=== PATIENT | male | born 1975 | race Caucasian/White ===

== ENCOUNTER 2020-08-22 14:02 | Emergency (ER) | payer OTHER, SELFPAY ==
[2020-08-22] VITALS (9 sets, daily range): BP systolic 123–144; BP diastolic 63–94; PULSE 60–93; RESP 12–17; TEMP 36.2–36.5; O2SAT 93–99
--- NOTE | ~2020-08-22 | CT_ITS ---
EXAMINATION: CT shoulder RT wo con DATE: 08/22/2020 18:09 INDICATION: Fracture of the right humerus TECHNIQUE: Computed tomography (CT) of the right shoulder was performed without intravenous contrast. The dose-length product was 544.59 mGy-cm. Automated exposure control and iterative reconstruction t echnique were employed. COMPARISON: No prior studies for comparison. FINDINGS: There is a comminuted intra-articular fracture of the right humeral neck. There is displace ment of the greater tuberosity. There is posterior displacement of the humeral head. There glenohumer al joint appears to be intact. Glenoid process is intact. Acromioclavicular joint and anatomic alignm ent. There are linear infiltrates of the right upper and lower lobe. IMPRESSION: 1. Comminuted, displaced intra-articular fracture right humeral neck with lateral displacement of the greater tuberosity. 2: Patchy linear infiltrates of the right upper and lower lobe which may represent atelectasis and/or pneumonia. Reviewed, dictated and finalized at location A. ING ENGINEER IMPRESSION: 1. Comminuted, displaced intra-articular fracture right humeral neck with later al displacement of the greater tuberosity. 2: Patchy linear infiltrates of the right upper and lower lobe which may repres ent atelectasis and/or pneumonia.
--- NOTE | ~2020-08-22 | XR_ITS ---
EXAMINATION: XR shoulder RT min 2V DATE: 08/22/2020 14:22 INDICATION: Right shoulder injury. TECHNIQUE: 2 views of right shoulder were obtained. COMPARISON: None. FINDINGS: There is anterior dislocation of right humeral head with respect to glenoid. There is likel y a fracture deformity of surgical neck of proximal right humerus with anterior displacement and impa ction of the distal fracture fragment. IMPRESSION: 1. Anterior right shoulder dislocation. 2. Two-part fracture of proximal right humerus. Sensitivity is decreased by the limited number of vie ws and nonstandard positioning. Consider additional views or CT. Reviewed, dictated and finalized at location A. OLE SCHEDULER IMPRESSION: 1. Anterior right shoulder dislocation. 2. Two-part fracture of proximal right humerus. Sensitivity is decreased by the limited number of views and nonstandard positioning. Consider additional views or CT.
--- NOTE | ~2020-08-22 | XR_ITS ---
XR shoulder RT min 2V 08/22/2020 17:46 Indication: Right humerus fracture Procedure: 2 views right shoulder Comparison: 08/22/2020 Findings: There is a comminuted right humeral neck fracture with displacement. Improved alignment all owing for differences in the. Acromioclavicular joint intact. Visualized lung parenchyma is unremarka ble. Impression: 1: Improved alignment of displaced comminuted right humeral neck fracture. Reviewed, dictated and finalized at location A. PER Impression: 1: Improved alignment of displaced comminuted right humeral neck fracture.
--- NOTE | ~2020-08-22 | XR_ITS ---
EXAMINATION: XR shoulder RT 1V DATE: 08/22/2020 15:02 INDICATION: Right shoulder dislocation status post reduction. TECHNIQUE: A single view of right shoulder was obtained. COMPARISON: Right shoulder radiographs at 2:22 PM FINDINGS: There is normal alignment at glenohumeral joint. There is a comminuted fracture of proximal right humerus with displaced fracture components at the greater tuberosity and surgical neck. The ma in distal fracture fragment demonstrates impaction and 12 mm anterior displacement. The glenohumeral joint is not well profiled. There is mild acromioclavicular joint osteoarthritis. The right lung is s mall. Airspace opacities throughout right lung may be atelectasis or chronic lung disease. IMPRESSION: 1. Comminuted three-part fracture of proximal right humerus. Reviewed, dictated and finalized at location A. NSING SERVICES CLERK
--- NOTE | ~2020-08-22 | CT_ITS ---
EXAMINATION: CT brain wo con EXAM DATE: 08/22/2020 16:11 INDICATION: Fall right side frontal head pain s/p fall . Bilateral frontal head pain. TECHNIQUE: Spiral CT of the head was performed without contrast. Axial, coronal and sagittal images were reviewed. The dose-length product (DLP) for this examination was 605.33 mGy-cm. The exposure w as tailored according to patient size, and iterative reconstruction (ASIR) was used as additional dos e reduction technique. There is no prior study for comparison. FINDINGS: There is no acute intraparenchymal hemorrhage. No evidence of intraparenchymal brain mass lesion. No evidence of acute infarction. There is no mass effect or midline shift. The ventricles are normal in size. There are no extra-axial collections. There are no acute calvarial fractures. T he orbits are unremarkable. Soft tissue is unremarkable. The visualized sinuses and mastoid air suhail ls are well aerated. IMPRESSION: 1. No acute intracranial findings. Reviewed, dictated and finalized at location B. MOTIVE HEAVY MECHANIC
--- NOTE | 2020-08-22 14:06 | ED.UPPEXIN ---
HPI - Extremity Injury (Upper) General Chief Complaint: Extremity Injury, Upper Stated Complaint: fell off lader Time Seen by Provider: 08/22/20 14:04 Source: patient and RN notes reviewed Mode of arrival: ambulatory Limitations: no limitations History of Present Illness HPI narrative: Patient fell off of a ladder onto his right shoulder. He is unable to move his right shoulder. complaint: injury to: right and shoulder Onset (ago): minute(s) (15) Other injuries: none Handedness: right Place: home Severity: severe Relieving factors: none Exacerbating factors: movement of extremity Context: fall Associated symptoms: heard/felt popping sensation Related Data Home Medications Medication Instructions Recorded Confirmed atorvastatin 40 mg PO DAILY 08/22/20 08/22/20 ergocalciferol (vitamin D2) 1,250 mcg PO DAILY 08/22/20 08/22/20 escitalopram oxalate 20 mg PO DAILY 08/22/20 08/22/20 metformin 500 mg PO BID 08/22/20 08/22/20 oxybutynin chloride 5 mg PO DAILY 08/22/20 08/22/20 Allergies Allergy/AdvReac Type Severity Reaction Status Date / Time Anesthetics - Amide Type - AdvReac Unknown Nausea and Verified 09/03/17 12:30 Select A Vomiting Anesthetics - Kaylin Type- AdvReac Unknown Nausea and Verified 09/03/17 12:30 Parabens Vomiting Review of Systems Review of Systems: All systems reviewed & are unremarkable except as noted in HPI and below Neurologic: Denies confusion, Denies dizziness and Denies syncope PMFSH Past Medical History Medical History (Updated 08/22/20 @ 19:01 by Ryland Campos MD) Depression with anxiety Hyperlipidemia Type 2 diabetes mellitus Surgical History Surgical History (Updated 08/22/20 @ 14:22 by Ryland Campos MD) H/O inguinal hernia repair History of cholecystectomy Social History Social History (Updated 08/22/20 @ 14:23 by Ryland Campos MD) Smoking status: Former smoker Alcohol use details: occasional Substance use: never Exam Const: General: alert Nutritional Appearance: well nourished Orientation/consciousness: patient oriented x3 Other: appears in pain HENMT: Head: normal to inspection, abrasion ( right forehead) and contusion Ears: external ears normal General nose exam: Normal external nose present Face and sinus: normal facial exam Mouth: Yes Normal oral and palatal mucosa present, Yes lip normal and Yes moist mucous membranes Throat: posterior oropharynx normal Eyes: Conjunctivae: conjunctivae normal Pupils: Equal, round and reactive pupils present EOM: EOMs intact bilaterally Neck: Neck: normal visual inspection Resp: Effort & Inspection: normal respiratory effort Auscultation: clear to auscultation bilaterally Cardio: Rate: regular rate Rhythm: regular rhythm GI: GI Palp: Yes Soft to palpation and No Tenderness to palpation present (GI) Auscultation: normal bowel sounds : Male General Exam: Yes normal external exam Back/Spine/Pelvis: Cervical Spine: cervical ROM normal Thoracic/Lumbar Spine: thoraco-lumbar ROM normal Skin: General skin exam: normal color Rashes: no rashes Neuro: General: patient oriented x3, moves all extremities, no meningeal signs and no focal motor deficits Cranial nerves: Yes Nystagmus not present Speech: normal speech Gait exam (Neuro): Normal gait present Extrem: General: no clubbing, cyanosis or edema Right upper extremity: shoulder/upper arm abnormal to inspection obvious dislocation, tenderness of the proximal humerus and swelling of the proximal humerus anteromedially Psych: Appearance: grossly normal and well kempt Mental Status: mental status grossly normal Affect: normal affect Attitude: cooperative Thought content: Yes Normal thought content present Course Course Emergency Course: discussed with orthopedic surgeon at [facility] he suggested two more views of the right shoulder and a CT scan. He recommended the patient be seen early next week for possible surgery. initial fra
[2020-08-22] MEDS: ONDANSETRON INJ 4 MG/2 ML VIAL IV PUSH ×2 (14:16→16:10)
[2020-08-22] MEDS: HYDROmorphone HCL INJ (*CRX) 2 MG/ML VIAL 1 MG IV PUSH ×3 (14:16→18:08)
--- NOTE | 2020-08-22 14:17 | PC.NURSE ---
[facility] CALLED FOR POSSIBLE TRANSFER TO SEE DR VENTURA, CARDIOLOGY
[2020-08-22] MEDS: ETOMIDATE 20 MG/10 ML AMPUL IV PUSH (14:31)
--- NOTE | 2020-08-22 15:35 | PC.NURSE ---
[facility] CALLED FOR ORTHO CONSULT - SUHAS YAO
--- NOTE | 2020-08-22 17:25 | PC.NURSE ---
DR PATTON CALLS BACK AND STATES HE NEEDS MORE VIEWS OF THE SHOULDER AND THEN HE CAN GO HOME FOR FOLLOW UP.
== END 2020-08-22 19:29 | disposition home or self-care (01) ==
PROVIDERS: Emergency Provider Emergency Medicine
DX: S42.291A Other displaced fracture of upper end of right humerus, initial encounter for closed fracture (principal); S43.004A Unspecified dislocation of right shoulder joint, initial encounter; W11.XXXA Fall on and from ladder, initial encounter
CPT/HCPCS: 23665; 70450; 73020; 73030; 73200; 96374; 96375; 96376; 99284; 99285; J1170; J2405; L3670

== ENCOUNTER 2025-05-31 20:24 | Emergency (ER) | payer OTHER, SELFPAY ==
--- NOTE | ~2025-05-31 | CT_ITS ---
EXAMINATION: CT abdomen pelvis w con DATE: 05/31/2025 22:33 INDICATION: Left flank pain. TECHNIQUE: Computed tomography (CT) of the abdomen and pelvis was performed with 100 mL Omnipaque 350 intravenous contrast. Automated exposure control and iterative reconstruction technique were employed. The dose-length product was 1201.36 mGy-cm. COMPARISON: None. FINDINGS: The visualized portions of the lung bases demonstrate mild atelectasis. No pleural effusion. The heart size is normal. No pericardial effusion. The liver is normal. There are changes of cholecystectomy. The spleen, pancreas, adrenal glands, and kidneys are normal. There is diverticulosis of the colon without evidence of diverticulitis. There is fat stranding around an epiploic appendage of the sigmoid colon, consistent with epiploic appendagitis. The appendix is normal. There are no dilated loops of bowel. There are no pathologically enlarged lymph nodes. There is no free intraperitoneal fluid. There is mild thoracic and lumbar spondylosis. IMPRESSION: 1. Epiploic appendagitis of the sigmoid colon. Reviewed, dictated and finalized at location E.
[2025-05-31 20:26] VITALS: BP 131/89; PULSE 106; RESP 22; TEMP 36.9; O2SAT 97
--- OUTSIDE RECORDS SUMMARY | 2025-05-31 20:27 | XMS_ITS | Clinical Summary ---
Author Organization [facility] Address [address] [place] [address] Care Team Providers Care Supervisor Cell Room Name Role Phone Lionel Gould MD Primary Care Provider [phone] Daisy Gonzalez MD Unavailable Source Comments [facility],non-owned Affiliates and Associated Physician Practices is amultiple site organization consisting of ambulatory clinics and hospital sitesin [place], [place], [place] and [place]. This disclosure is being madepursuant to the Care Everywhere program and may not contain all information available regarding this patient. Last updated 18.[facility] [employer] Allergies Active Allergy Reactions Criticality Noted Date Comments Kdc:Red Dye+Benzoic Acid+Chloride+Citrate+ Fructose+Dextrose+... Diarrhea,Nausea and/or Vomiting 10/16/2020 Meloxicam Nausea and/or Vomiting High 07/03/2022 Propoxyphene Nausea and/or Vomiting Low 09/19/2014 Vomits after general anesthetics Medications * Be aware that medications may not be up to date on this document. Alwaysverify current medications with the patient. escitalopram (Lexapro) 20 MG tablet Take 1 (one) tablet by mouth once daily 30 tablet 3 12/10/19 23 Active nitroGLYCERIN (Nitrostat) 0.4 MG tabletIndicatio ns:Unstable angina pectoris (HCC) Dissolve 1 (one) tablet under the tongue every 5 minutes as needed for Angina 100 tablet 12/13/19 23 Active ondansetron, disintegrating, (Zofran ODT) 4 MG tablet Take 1 (one) tablet by mouth every 6 hours as needed for Nausea/Vomiting Allow tablet to dissolve on the tongue 10 tablet 05/27/20 23 Active albuterol HFA (ProAir HFA) 108 (90 Base) MCG/ACT inhaler Inhale 2 (two) puffs by mouth every 4 hours as needed for Shortness of Breath or Wheezing 8.5 g 1 06/24/20 23 Active atorvastatin (Lipitor) 40 MG tablet Take 1 (one) tablet by mouth once daily 90 tablet 3 02/05/20 24 Active finasteride (Proscar) 5 MG tabletIndicatio ns:Benign prostatic hyperplasia with nocturia Take 1 (one) tablet by mouth once daily 90 tablet 4 03/08/20 24 Active hydrOXYzine HCl (Atarax) 10 MG tabletIndicatio ns:Generalized anxiety disorder Take 1 (one) tablet by mouth once daily as needed for Itching 15 tablet 03/08/20 24 Active fish oil/omega-3 fatty acids (Promega;Cardi- [place] 3) 1000 MG capsule Take 1 (one) capsule by mouth 3 times daily with meals 90 capsule 3 04/04/20 24 Active Additional Information Patient not taking.Reported on 03/14/2025 metFORMIN ER 24hr (Glucophage XR) 500 MG tabletIndicatio ns:Type 2 diabetes mellitus without complication, without long-term current use of insulin (HCC) Take 2 (two) tablets by mouth 2 times daily 360 tablet 3 04/08/20 24 Active cetirizine (ZyrTEC) 10 MG tablet Take 1 (one) tablet by mouth once daily 90 tablet 4 09/15/19 25 Active fluticasone propionate (Flonase) 50 MCG/ACT nasal sprayIndication s:Epistaxis SPRAY 2 SPRAYS INTO EACH NOSTRIL EVERY DAY 16 g 3 11/16/19 25 Active amLODIPine (Norvasc) 10 MG tabletIndicatio ns:Unstable angina pectoris (HCC) TAKE 1 TABLET BY MOUTH EVERY DAY 90 tablet 3 01/06/20 25 Active cyclobenzaprine (Flexeril) 10 MG tabletIndicatio ns:Chronic midline low back pain with bilateral sciatica,Lumbar paraspinal muscle spasm TAKE 1 TABLET BY MOUTH THREE TIMES A DAY 90 tablet 2 06/02/20 25 Active dulaglutide (Trulicity) 4.5 MG/0.5ML injectionIndica tions:Type 2 diabetes mellitus without complication, without long-term current use of insulin (HCC) INJECT 4.5 (FOUR AND ONE-HALF) MG SUBCUTANEOUSLY EVERY 7 DAYS 2 mL 11 03/04/20 25 Active Active Problems Problem Noted Date Diagnosed Date Falls frequently 03/14/2025 Other chest pain 03/14/2025 Hypertriglyceridemia 04/01/2024 Chronic pain of left ankle 03/08/2024 Epicondylitis elbow, medial, left 03/08/2024 Benign prostatic hyperplasia with nocturia 05/09 Healthcare maintenance 06/12/2022 Generalized anxiety disorder 06/12/2022 Left elbow pain 08/02/2019 Colon adenomas 03/06/2018 Overview (03/06/2018): 02/24/18 colonoscopy: 2 adenomas removed, repeat in 5 years Type 2 diabetes mellitus 12/16/2017 Major depressive disorder, single episode 2015 Radiculopathy 07/18/2015 Resolved Problems Problem Noted Date Diagnosed Date Resolved Date Overweight (BMI 25.0-29.9) 09/08/2023 0 03/08/2024 Acute idiopathic pericarditis 04/09/2023 05/09/2023 Unstable angina pectoris 12/12/202204/2023 Other chest pain 12/12/2022 01/09/2023 Epistaxis 06/12/2022 12/12/2022 Foot pain, bilateral 06/12/2022 023 Ear itching 06/12/2022 12/12/2022 Plantar fasciitis 06/12/2022 09/08/2023 Elevated blood pressure read ing without diagnosis of hypertension 06/12/2022 12/12/2022 Decreased sensation of foot 06/12/2022 09/08/2023 Need for prophylactic vaccin ation and inoculation against viral hepatitis 06/12/202211/30 Major depressive disorder, s bob episode, moderate 06/12/2022 12/12/2022 S/P shoulder surgery 11/29/2020 023 Traumatic closed displaced f racture of right shoulder with anterior dislocation 09/08/202005/09 Panic disorder without agoraphobia 04/09/2016 12/12/2022 Class 1 obesity due to exces s calories without serious comorbidity with body mass index (BMI) of 30.0 to 30.9 in adult 06/07/2015 Encounters Date Type Department Care Team Description 05/04/2025 Refill [facility] - Internal Med [address] [place] [phone] Lionel Gould MD MEDICATION REFILL 04/05/2025 Refill [facility] - Internal Med [address] [place] [phone] Lionel Gould MD MEDICATION REFILL 03/15/2025 Results Follow-Up [facility] - Internal [address] [phone] Lionel Gould MD 03/14/2025 9:40 AM CDT - 03/14/2025 11:59 PM CDT Hospital Encounter [facility] [address] [place] [address] Discharge Disposition: Home or Self Care 03/14/2025 8:30 AM CDT Office Visit [facility] - Internal [address] [phone] Lionel Gould MD Type 2 diabetes mellitus without complication, without long-term current use of insulin (HCC) (Primary Dx); Hypertriglyceridemia ; Class 1 obesity due to excess calories without serious comorbidity with body mass index (BMI) of 30.0 to 30.9 in adult; Healthcare maintenance; Generalized anxiety disorder; Colon adenomas; Lumbar radiculopathy; Left elbow pain; Chronic pain of left ankle; Falls frequently; Epicondylitis elbow, medial, left; Other chest pain; Need for vaccination; Screening for prostate cancer 03/14/2025 Travel 03/03/2025 Refill [facility] - Internal Med [address] [place] [phone] Lionel Gould MD Refill Request from Last 3 Months Immunizations Immunization Administration Dates Next Due Mantex primary Monoval ent 12+ yr 0.3ml 07/16/2024,05/24/2023 Covid Pfizer primary monoval ent 12+ yr 0.3mL Purple cap 07/06/2022,07/24/2021,12/20/2020,2020 HEP B VACCINE, ADULT 3 DOSE 09/20/2022,,11/01/2020 INFLUENZA VACCINE 07/16/2024,05/24/2023 INFLUENZA VACCINE, QUADR. (F LUZONE; FLULAVAL; FLUARIX; AFLURIA QUADRIVALENT; 6MO+), 0.5 ML (IIV4) 06/15/2018 PNEUMOCOCCAL PCV20 CONJ VAC IM 06/12/2022 PNEUMOCOCCAL PPSV23 06/15/2018 TDAP (7yrs+) 11/23/2024,11/26/2016,09/19/2014 iNFLUENZA VACCINE, RECOM-BOYER, QUADR. (FLUBLOCK QUADRIVALENT; 18Y+) (RIV4) 06/12/2022,07/24/2021 Family History Medical History Relation Name Comments Heart Disease Maternal Grandfather substa nce abuse Cancer Maternal Grandmother Lung Heart Disease Maternal Uncle alcohol, carley g abuse None Known Mother Status: Alive Cirrhosis Other Great uncle Relation Name Status Comments Maternal Grandfather Maternal Grandmother Maternal Uncle Mother Other Social History Tobacco Use Types Packs/Day Years Used Date Smoking Tobacco: Former Cigarettes 0.5 20 0 09/01/1992 - 09/01/2012 Smokeless Tobacco: Never Tobacco Cessation:Counseling Given: Not Answered Alcohol Use Standard Drinks/Week Comments Not Currently 0 (1 standard drink = 0.6 oz pur e alcohol) occasional AUDIT-C Answer Date Recorded Q1: How often do you have a drink containing alc ohol? Never 08/02/2021 Average Number of Drinks Not on file 021 Q3: How often do you have si x or more drinks on one occasion? Never 08/02/2021 PHQ-2 Answer Date Recorded Patient Health Questionnaire-2 Score 4 03/14/2025 Sex and Gender Information Value Date Recorded Sex Assigned at Male 01/03/2022 11:56 AM CDT Legal Sex Male 5:18 PM SHOW DOG TRAINER Gender Identity Male 01/03/2022 11:56 AM CDT Sexual Orientation Straight 01/03/2022 11 :56 AM CDT Last Filed Vital Signs Vital Sign Reading Time Taken Comments Blood Pressure 121/84 03/14/2025 8:23 AM CDT Pulse 70 03/14/2025 8:23 AM CDT Temperature 36.5 C (97.7 F) 03/14/2025 8:23 AM CDT Respiratory Rate 16 09/21/2024 10:38 AM SHOW DOG TRAINER Oxygen Saturation 97% 03/14/2025 8:23 AM CDT Inhaled Oxygen Concentration - - Weight 104.3 kg (230 lb) 03/14/2025 8:23 AM CDT Height 180.3 cm (5' 11) 03/14/2025 8:23 AM CDT Body Mass Index 32.08 03/14/2025 8:23 AM CDT Plan of Treatment Upcoming Encounters Date Type Department Care Team (Late st Contact Info) Description 07/05/2025 9:30 AM SHOW DOG TRAINER Appointment [facility] [place] [address] Lionel Gould MD [facility] [place] [phone] 07/05/2025 10:30 AM SHOW DOG TRAINER Appointment [facility] [address] [phone] Lionel Gould MD [facility] [place] [phone] 07/05/2025 1:00 PM SHOW DOG TRAINER Appointment [facility] [address] [place] [address] Lionel Gould MD [facility] [place] [phone] 07/29/2025 1:00 PM SHOW DOG TRAINER Office Visit [facility] - Internal Med [address] [facility] [place] [address] Lionel Gould MD [address] [place] [phone] Health Maintenance Due Date Last Done Comments COLOGUARD (AGES 45-75) - COLON CA SCREENING 1974 CT COLONOGRAPHY - COLON CA SCREENING 1974 FIT - COLON CA SCREENING 1974 FLEX SIG - COLON CA SCREENING 1974 DIABETES-FOOT EXAM WITH MONOFILAMENT 09/08/2024 09/08/2023, 05/09/2023, 01/09/2023, Additional history exists ZOSTER VACCINE (1 of 2) 2024 COVID-19 VACCINE ( season) 2025 07/16/2024, 05/24/2023, 07/06/2022, Additional history exists INFLUENZA VACCINE (#1) 2025 , 05/24/2023, 06/12/2022, Additional history exists DIABETES RETINOPATHY SCREENING 08/07/2025 08/07/2023, 06/27/2022, 07/10/2021 (Done Outside Per Patient), Additional history exists DIABETES - URINE PROTEIN SCREENING 09/13/2025 09/13/2024, 03/08/2024, 08/15/2021, Additional history exists DIABETES-HGB A1C 09/14/2025 03/14/2025, , 03/08/2024, Additional history exists DIABETES-SERUM CREATININE 03/14/20262024, 09/13/2024, 03/08/2024, Additional history exists COLON MONITORING 02/25/2028 02/24/2018, 02/24/2018 COLONOSCOPY - COLON CA SCREENING 02/25/2028 02/24/2018, 02/24/2018 Colorectal Cancer Screening 02/25/2028 DTAP/TDAP/TD VACCINES (4 - Td or Tdap) 11/23/2034 11/23/2024, 11/26/2016, 09/19/2014 HEPATITIS C SCREENING Completed 07/25/2020 HIV SCREENING Completed 11/01/2020 PNEUMOCOCCAL VACCINE 50+ Completed 06/12/2022, 06/01 HEPATITIS B VACCINE Completed 09/20/2022, 06/12/2022, 11/01/2020 DEPRESSION SCREENING Completed 09/13/2024, 09/08/2023, 05/09/2023, Additional history exists HIB VACCINE Aged Out No longer eligi ble based on patient's age to complete this topic HPV VACCINE Aged Out No longer eligi ble based on patient's age to complete this topic MENINGOCOCCAL (Group B) VACCINE SHARED DECISION-MAKING Aged Out No longer eligible based on patient's age to complete this topic MENINGOCOCCAL GROUPS A/C/Y/W VACCINE Aged Out No longer eligible based on patient's age to complete this topic Goals Goal Patient Goal Type Associated Problems Recent Progress Patient-Stated? Author Mobility General No change(2020 11:34 AM CDT) No Alexsandra Barker, RN Note: Expected end date: 05/31/2019 The goal is to maintain or improve your mobility at the optimum level for you. Interventions: HEMOGLOBIN A1C < 7.0 Result Component 6.5( 9:52 AM CDT) No Christi Lopez Note: Pt enrolled in [employer] for BS monitoring. Pt will receive daily texts to cell phone at 10:30. Pt understands these are fasting BS readings. Patient opted out of [employer] program. Medical Devices Implanted Type Area Sign Maintenance Device Identifier Shelf Expiration Date Model / Serial / Lot Screw 3.5mm 32mm Shldr Adis Ti Implanted:Qty: 1 on 10/16/2020 by Chaitanya Figueroa MD at [facility] Right: Shoulder [employer] [id number] / / Description:implant from [employer] vendor tray Screw 3.5mm 28mm Shldr Adis Ti Implanted:Qty: 1 on 10/16/2020 by Chaitanya Figueroa MD at [facility] Right: Shoulder [employer] [id number] / / Description:implant from [employer] vendor tray Screw 3.5mm 26mm Shldr Adis Ti Implanted:Qty: 1 on 10/16/2020 by Chaitanya Figueroa MD at [facility] Right: Shoulder [employer] [id number] / / Description:implant from [employer] vendor tray Screw 4mm 40mm Lck Shldr Canc Ti Implanted:Qty: 1 on 10/16/2020 by Chaitanya Figueroa MD at [facility] Right: Shoulder [employer] [id number] / / Description:implant from [employer] vendor tray Screw 4mm 44mm Lck Shldr Canc Ti Implanted:Qty: 1 on 10/16/2020 by Chaitanya Figueroa MD at [facility] Right: Shoulder [employer] [id number] / / Description:implant from [employer] vendor tray Screw 4mm 34mm Lopro Lck Shldr Canc Implanted:Qty: 1 on 10/16/2020 by Chaitanya Figueroa MD at [facility] Right: Shoulder [employer] [id number] / / Description:implant from [employer] vendor tray Screw 4mm 42mm Lck Shldr Canc Ti Implanted:Qty: 1 on 10/16/2020 by Chaitanya Figueroa MD at [facility] Right: Shoulder [employer] [id number] / / Description:implant from [employer] vendor tray Screw 4mm 38mm Lopro Lck Shldr Canc Implanted:Qty: 1 on 10/16/2020 by Chaitanya Figueroa MD at [facility] Right: Shoulder [employer] [id number] / / Description:implant from [employer] vendor tray 3-Hole Prox Humerus Plate Implanted:Qty: 1 on 10/16/2020 by Chaitanya Figueroa MD at [facility] Right: Shoulder [employer] [id number] / / Description:CC Procedures Procedure Name Priority Date/Time Associated Diagnosis Comments RENAL FUNCTION PANEL Routine 03/14/2025 9:52 AM CDT Type 2 diabetes mellitus without complication, without long-term current use of insulin ([facility]) HEMOGLOBIN A1C Routine 03/14/2025 9:52 AM CDT Type 2 diabetes mellitus without complication, without long-term current use of insulin (HCC) LIPID PROFILE Routine 03/14/2025 9:52 AM CDT Hypertriglyceridemia PROSTATE SPECIFIC ANTIGEN SCREEN Routine 03/14/2025 9:52 AM CDT Screening for prostate cancer MICROALB/CREAT RATIO URINE RANDOM PANEL Routine 09/13/2024 9:52 AM SHOW DOG TRAINER Essential hypertension EYE EXAM Routine 08/07/2023 HIV-1 HIV-2 ANTIBODY + HIV P24 AG PANEL Routine 11/01/2020 11:24 AM SHOW DOG TRAINER Healthcare maintenance HEPATITIS C AB W/RFLX TO HCV RNA QN PCR Routine 07/25/2020 12:54 PM SHOW DOG TRAINER Healthcare maintenance ENDOSCOPY, COLON, DIAGNOSTIC Routine 02/24/2018 1:39 PM CDT from Last 3 Months or Most Recently Relevant to Health Maintenance Results * (ABNORMAL) HEMOGLOBIN A1C (03/14/2025 9:52 AM CDT) Hemoglobin A1c 6.5(H) <=5.6 % 03/14/2025 12:04 PM CDT [facility] Estimated Average Glucose 140 mg/dL 03/14/2025 12:04 PM [facility] Comment: HbA1c Interpretation: Normal : < 5.7% Pre-diabetes: 5.7-6.4% Diabetes: Equal to or greater than 6.5% Test results diagnostic of diabetes should be repeated for confirmation. Treatment target values recommended by ADA and other clinical organizations should be used to evaluate metabolic control in patients. Reference: Indian Diabetes Association, Standards of Care in Diabetes -2020 In patients 70 years and older consider HbA1c target range of 7.0-7.5% (Reference: Patric Tai et al. JAMDA. 2012) The Sebia assay for the measurement of HbA1c is a National Glycohemoglobin Standardization Program (NGSP) certified method. Blood BLOOD SPECIMEN / Unknown Lab Venipuncture / Unknown 03/14/2025 9:52 AM CDT 03/14/2025 10:47 AM CDT us Lionel Gould MD LAB - CHEMISTRY ORDERABLES Final Result [facility] [address] [place] [address], [facility] [phone] * (ABNORMAL) RENAL FUNCTION PANEL (03/14/2025 9:52 AM CDT) BUN 14 7 - 26 mg/dL 03/14/2025 11:41 AM [facility] Creatinine 0.94 0.71 - 1.16 mg/dL 03/14/2025 11:41 AM [facility] Sodium 139 136 - 145 mmol/L 03/14/2025 11:41 AM [facility] Potassium 3.8 3.5 - 4.5 mmol/L 03/14/2025 11:41 AM [facility] Chloride 107 98 - 107 mmol/L 03/14/2025 11:41 AM [facility] CO2 25 22 - 29 mmol/L 03/14/2025 11:41 AM [facility] Glucose 104(H) 70 - 99 mg/dL 03/14/2025 11:41 AM [facility] Albumin 4.7 3.4 - 5.0 g/dL 03/14/2025 11:41 AM [facility] Calcium 9.9 8.4 - 10.2 mg/dL 03/14/2025 11:41 AM [facility] Phosphorus 4.2 2.8 - 5.1 mg/dL 03/14/2025 11:41 AM [facility] Anion Gap 7 6 - 16 03/14/2025 11:41 AM [facility] BUN/Creatinine Ratio 15 7 - 23 03/14/2025 11:41 AM [facility] Osmolality Calculated 289 275 - 295 mOsm/kg 03/14/2025 11:41 AM [facility] eGFR by CKD-EPI >90 >=90 mL/min/1.7 3 m2 03/14/2025 11:41 AM [facility] Comment:Estimated Glomerular Filtration Rate (eGFR) calculated using the CKD-EPI Creatinine Equation (2020), per the National Kidney Foundation and Indian Society of Nephrology recommendations. Blood BLOOD SPECIMEN / Unknown Lab Venipuncture / Unknown 03/14/2025 9:52 AM CDT 03/14/2025 10:47 AM CDT Lionel Gould MD LAB - CHEMISTRY ORDERABLES Final Result Performing Organization Address [facility]/ZIP Co de Phone Number [address] [address], [facility] [phone] * PROSTATE SPECIFIC ANTIGEN SCREEN (03/14/2025 9:52 AM CDT) PSA Total 0.3 <4.0 ng/mL 03/14/2025 12:14 PM CDT [facility] Blood BLOOD SPECIMEN / Unknown Lab Venipuncture / Unknown 03/14/2025 9:52 AM CDT 03/14/2025 10:09 AM CDT Narrative [facility] - 03/14/2025 12:14 PM CDT PSA values will vary depending on the testing procedure used. Results are not comparable across different test methods. [facility] uses the [employer] Alinity immunoassay test method. Lionel Gould MD LAB - CHEMISTRY ORDERABLES Final Result Performing Organization Address [facility] Co de Phone Number [address] [address], [facility] [phone] * (ABNORMAL) LIPID PROFILE (03/14/2025 9:52 AM CDT) Cholesterol Total 160 <200 mg/dL 03/14/2025 11:41 AM CDT [facility] HDL 32(L) >40 mg/dL 03/14/2025 11:41 AM CDT [facility] Comment: ATP III Classification of HDL Cholesterol: <40 mg/dL: Considered a major risk factor. >60 mg/dL: Considered a negative risk factor. LDL Calculated 68 <100 mg/dL 03/14/2025 11:41 AM [facility] Comment: ATP III Classification of LDL Cholesterol: <100 mg/dL: Optimal 100 - 129 mg/dL: Near Optimal/Above Optimal 130 - 159 mg/dL: Borderline High 160 - 189 mg/dL: High >190 mg/dL: Very High LDL is calculated using the Friedewald equation. Triglycerides 301(H) <150 mg/dL 03/14/2025 11:41 AM [facility] Comment: ATP III Classification of Triglycerides: <150 mg/dL: Normal 150 - 199 mg/dL: Borderline High 200 - 400 mg/dL: High >500 mg/dL: Very High Blood BLOOD SPECIMEN / Unknown Lab Venipuncture / Unknown 03/14/2025 9:52 AM CDT 03/14/2025 10:47 AM CDT Lionel Gould MD LAB - CHEMISTRY ORDERABLES Final Result Performing Organization Address City/[facility]/ZIP Co de Phone Number [facility] [address] [place] [address], [place] [phone] * MICROALB/CREAT RATIO URINE RANDOM PANEL (09/13/2024 9:52 AM SHOW DOG TRAINER) Albumin Random Urine 15.1 Not Established ug/mL 09/13/2024 12:20 PM [facility] Creatinine Urine 175.64 Not Established mg/dL 09/13/2024 12:20 PM [facility] Urine Albumin/Creati nine Ratio 9 <30 mg/g 09/13/2024 12:20 PM [facility] Urine URINE SPECIMEN OBTAINED BY CLEAN CATCH PROCEDURE / Unknown Collection / Unknown 09/13/2024 9:52 AM SHOW DOG TRAINER 09/13/2024 10:12 AM SHOW DOG TRAINER Lionel Gould MD LAB - URINE CHEMISTRY ORDERABLES Final Result Performing Organization Address City/[facility]/ZIP Co de Phone Number [facility] [address] [place] [address], [place] [phone] * EYE EXAM (08/07/2023) Anatomical Region Laterality Modality Other us Historical Provider MD SCANNING ONLY Final Res ult * HIV-1 HIV-2 ANTIBODY + HIV P24 AG PANEL (11/01/2020 11:24 AM SHOW DOG TRAINER) Pathologist [facility] HIV Screen 4th Generation w Reflex NON-REACT CLAIRE NON-REACT CLAIRE QUEST Comment: HIV-1 antigen and HIV-1/HIV-2 antibodies were not detected. There is no laboratory evidence of HIV infection. PLEASE NOTE: This information has been disclosed to you from records whose confidentiality may be protected by state law. If your state requires such protection, then the state law prohibits you from making any further disclosure of the information without the specific written consent of the person to whom it pertains, or as otherwise permitted by law. A general authorization for the release of medical or other information is NOT sufficient for this purpose. For additional information please refer to [email or web address] (This link is being provided for informational/ educational purposes only.) The performance of this assay has not been clinically validated in patients less than 2 years old. Test Performed at: [facility] [id number] [place] [address] REBEAK PHELPS DO,MPH Blood BLOOD SPECIMEN / Unknown 11/01/2020 11:24 AM SHOW DOG TRAINER 11/01/2020 11:25 AM SHOW DOG TRAINER Juan Antonio Wyman VEHICLE CONTROLS ENGINEER-HOOP DRIVING MACHINE OPERATOR LAB - CHEMISTRY ORDER MARCY Final Result [facility] [address] [place] [address] * HEPATITIS C AB W/RFLX TO HCV RNA QN PCR (07/25/2020 12:54 PM SHOW DOG TRAINER) Pathologist [facility] Hepatitis C Antibody NON-REACTI VE NON-REACT CLAIRE QUEST Signal to Cut-Off 0.03 <1.00 QUEST Comment: HCV antibody was non-reactive. There is no laboratory evidence of HCV infection. In most cases, no further action is required. However, if recent HCV exposure is suspected, a test for HCV RNA (test code 35434) is suggested. For additional information please refer to [email or web address]/[email or web address] (This link is being provided for informational/ educational purposes only.) Test Performed at: [facility] [employer] [address] [address] REBEKA PHELPS DO,MPH Blood BLOOD SPECIMEN / Unknown 07/25/2020 12:54 PM SHOW DOG TRAINER 07/25/2020 1:07 PM SHOW DOG TRAINER Juan Antonio Kia Kathiejose ramondarien VEHICLE CONTROLS ENGINEER-HOOP DRIVING MACHINE OPERATOR LAB - CHEMISTRY ORDER MARCY Final Result [employer] [address] [place] [address] * ENDOSCOPY, COLON, DIAGNOSTIC (02/24/2018 1:39 PM CDT) Report Endoscopy POC Endoscopy Department Report _ Patient Name: Chaitanya Colon Procedure Date: 02/24/2018 1:39 PM Date of : 1975 Classification: Outpatient Gender: Male _ Providers: Bry Mane MD, Sage Mcnally (Fellow) Referring MD: Krissy Booth (Referring MD) Procedure: Colonoscopy Indications: Clinically significant diarrhea of unexplained origin Medications: Monitored Anesthesia Care Description of Procedure: Pre-Anesthesia Assessment: - Prior to the procedure, a History and Physical was performed, and patient medications and allergies were reviewed. The patient's tolerance of previous anesthesia was also reviewed. The risks and benefits of the procedure and the sedation options and risks were discussed with the patient. All questions were answered, and informed consent was obtained. Prior Anticoagulants: The patient has taken no previous anticoagulant or antiplatelet agents. ASA Grade Assessment: I - A normal, healthy patient. After reviewing the risks and benefits, the patient was deemed in satisfactory condition to undergo the procedure. After I obtained informed consent, the scope was passed under direct vision. Throughout the procedure, the patient's blood pressure, pulse, and oxygen saturations were monitored continuously. The PCF-[id number] was introduced through the anus and advanced to the terminal ileum. The colonoscopy was performed without difficulty. The patient tolerated the procedure well. The quality of the bowel preparation was evaluated using the BBPS ([place] Bowel Preparation Scale) with scores of: Right Colon = 3 (entire mucosa seen well with no residual staining, small fragments of stool or opaque liquid) and Transverse Colon = 3 (entire mucosa seen well with no residual staining, small fragments of stool or opaque liquid). The total BBPS score equals 6. The quality of the bowel preparation was excellent. The quality of the bowel preparation was excellent. The terminal ileum, ileocecal valve, appendiceal orifice, and rectum were photographed. Findings: The perianal and digital rectal examinations were normal. Two sessile polyps were found in the transverse colon and cecum. The polyps were 3 to 4 mm in size. These polyps were removed with a cold biopsy forceps. Resection and retrieval were complete. The terminal ileum appeared normal. Biopsies were taken with a cold forceps for histology. Biopsies were taken with a cold forceps in the rectum, in the sigmoid colon, in the descending colon, in the transverse colon, in the ascending colon and in the cecum for histology. A few medium-mouthed diverticula were found in the sigmoid colon. Non-bleeding external hemorrhoids were found during retroflexion. The hemorrhoids were small. Estimated Blood Loss: Estimated blood loss was minimal. Complications: No immediate complications. Impression: - Two 3 to 4 mm polyps in the transverse colon and in the cecum, removed with a cold biopsy forceps. Resected and retrieved. - The examined portion of the ileum was normal. Biopsied. - Diverticulosis in the sigmoid colon. - Non-bleeding external hemorrhoids. - Biopsies were taken with a cold forceps for histology in the rectum, in the sigmoid colon, in the descending colon, in the transverse colon, in the ascending colon and in the cecum. Recommendation: - Patient has a contact number available for emergencies. The signs and symptoms of potential delayed complications were discussed with the patient. Return to normal activities tomorrow. Written discharge instructions were provided to the patient. - Resume previous diet. - Continue present medications. - Await pathology results. - Repeat colonoscopy is recommended for surveillance. The colonoscopy date will be determined after pathology results from today's exam become available for review. Attending Participation: I was present and participated during the entire procedure, including non-cordon portions. Procedure Code(s): --- Professional --- 19500, Colonoscopy, flexible; with biopsy, single or multiple Diagnosis Code(s): --- Professional --- D12.3, Benign neoplasm of transverse colon (hepatic flexure or splenic flexure) D12.0, Benign neoplasm of cecum K64.4, Residual hemorrhoidal skin tags R19.7, Diarrhea, unspecified K57.30, Diverticulosis of large intestine without perforation or abscess without bleeding CPT copyright 2016 [employer]. All rights reserved. The codes documented in this report are preliminary and upon satellite television installer review may be revised to meet current compliance requirements. Bry Mane MD 02/24/2018 3:04:54 PM This report has been signed electronically. Note Initiated On: 02/24/2018 1:39 PM Number of Addenda: 0 [facility] [address] [facility] [place] [address] [facility] 02/24/2018 1:39 PM CDT Sage Mcnally MD GI PROCEDURE ORDERABLES Edit ed Result - Final [facility] from Last 3 Months or Most Recently Relevant to Health Maintenance Insurance [facility] Care Teams Supervisor Cell Room Relationship Specialty Start Date End Date Lionel Gould MD [address] [place] [address] PCP - General 07/05/22 Daisy Gonzalez MD [address] [facility] [address] [place] [address] Neurology 03/24/24
--- OUTSIDE RECORDS SUMMARY | 2025-05-31 20:27 | XMS_ITS | Encounter Summary ---
Author Organization [facility] Health Address [address] [facility] [place] [address] Care Team Providers Care Milk Vendor Name Role Phone Krissy Booth MD Primary Care Provider Juan Antonio Wyman PIT WORKER [facility] Primary Care Provide r Smiley Davis [facility] Primary Care Provider Lizz Chairez MD Primary Care Provider [phone] Lionel Gould MD Primary Care Provider [phone] Lizz Chairez MD Primary Care Provider [phone] Lionel Gould MD Primary Care Provider Daisy Gonzalez MD Unavailable [phone] Reason for Visit * Reason Onset Date Comments Follow-up 05/05/2018 pt declined tria ge for ACS Encounter Details Date Type Department Care Team (Late st Contact Info) Description 05/05/2018 Telephone [facility] Internal Medicine [address] [facility] [address] [place] [address] Krissy Booth MD [address] [facility] [address] [place] [address] Follow-up (pt declined triage for ACS ) Social History Tobacco Use Types Packs/Day Years Used Date Smoking Tobacco: Former Cigarettes Q uit: 09/01/2012 Smokeless Tobacco: Never Alcohol Use Standard Drinks/Week Comments No 0 (1 standard drink = 0.6 oz pur e alcohol) Sex and Gender Information Value Date Recorded Sex Assigned at Male 01/03/2022 11:56 AM CDT Legal Sex Male 5:18 PM PICKER FEEDER Gender Identity Male 01/03/2022 11:56 AM CDT Sexual Orientation Straight 01/03/2022 11 :56 AM CDT documented as of this encounter Functional Status * Is person deaf or have serious hearing difficulty? Answer Date of Assessment Author No 02/24/2018 2:43 PM CDT Albania Hadley RN * Is person blind or have serious difficulty seeing? Answer Date of Assessment Author No 02/24/2018 2:43 PM CDT Albania Hadley RN * Does person have serious difficulty walking/climbing stairs? Answer Date of Assessment Author No 02/24/2018 2:43 PM CDT Albania Hadley RN * Does person have difficulty dressing/bathing? Answer Date of Assessment Author No 02/24/2018 2:43 PM CDT Albania Hadley RN * Does person have difficulty doing errands alone? Answer Date of Assessment Author No 02/24/2018 2:43 PM CDT Albania Hadley RN documented as of this encounter Mental Status * Does person have difficulty concentrating/remembering/making decisions? Answer Entry Date Author No 02/24/2018 2:43 PM CDT Albania Hadley RN documented in this encounter Miscellaneous Notes * Telephone Encounter - Mini Cedeno - 05/05/2018 8:23 AM CDT Spoke with patient and attempted to triage for ACS and patient declined. Patient requested to wait for Dr. Ba's recommendations. Provided patient with closing statement. .If anything new develops,if anything gets worse or if youbecome increasingly concerned for any reason, please seek out immediate medical Attention. * Telephone Encounter - Mini Cedeno - 05/05/2018 8:20 AM CDT ----- Message from Chaitanya Colon sent at 05/04/2018 12:55 PM CDT ----- Regarding: Report on Condition Contact: Dr. Booth, Well it's Friday and while my back hasn't gotten any worse, it's as it was before I got the injections. I'm not sure how often one can have those but it's going to be extremely difficult to do my joblike this. Let me know what you think. Respectfully, Chaitanya documented in this encounter Plan of Treatment Upcoming Encounters Date Type Department Care Team (Late st Contact Info) Description 07/05/2025 9:30 AM PICKER FEEDER Appointment [facility] NUCLEAR MEDICINE [address] [place] [phone] Lionel Gould MD [facility] [place] [phone] 07/05/2025 10:30 AM PICKER FEEDER Appointment [facility] NUCLEAR MEDICINE [address] [place] [phone] Lionel Gould MD [address] [place] [address] 07/05/2025 1:00 PM PICKER FEEDER Appointment [facility] ECHO [facility] [place] [address] Lionel Gould MD [address] [place] [phone] 07/29/2025 1:00 PM PICKER FEEDER Office Visit [facility] - Internal Med [address] [place] [address] [place] [address] Lionel Gould MD [address] [place] [phone] documented as of this encounter Goals Goal Patient Goal Type Associated Problems Recent Progress Patient-Stated? Author HEMOGLOBIN A1C < 7.0 Result Component 6.5(07/14/202 5 9:52 AM CDT) Christi Olmedo Note: Pt enrolled in [employer] for BS monitoring. Pt will receive daily texts to cell phone at 10:30. Pt understands these are fasting BS readings. Patient opted out of [employer] program. documented as of this encounter Visit Diagnoses Not on filedocumented in this encounter Care Teams Milk Vendor Relationship Specialty Start Date End Date Krissy Booth MD PCP - General 08/06/16 01/16/20 Juan Antonio Wyman APRN-TRAIN ENGINEER PCP - General 01/17/20 08/07/21 Smiley Davis APRN-TRAIN ENGINEER PCP - General 08/08/21 10/10/21 Lizz Chairez MD PCP - General 10/11/21 06/11/22 Lionel Gould MD [address] [place] [address] PCP - General Internal Medicine 06/12/22 06/12/22 Lizz Chairez MD PCP - General 06/13/22 07/04/22 Lionel Gould MD [address] [place] [address] PCP - General 07/05/22 Daisy Gonzalez MD [address] [place] [address] Neurology 03/24/24 documented as of this encounter
--- OUTSIDE RECORDS SUMMARY | 2025-05-31 20:27 | XMS_ITS | Encounter Summary ---
Author Organization [facility] Health Address [address] [facility] [place] [address] Care Team Providers Care Field Administrative Assistant Name Role Phone Lionel Gould MD Primary Care Provider [phone] Daisy Gonzalez MD Unavailable [phone] Reason for Visit * Reason Onset Date Comments MEDICATION REFILL 04/05/2025 Encounter Details Date Type Department Care Team (Late st Contact Info) Description 04/05/2025 Refill [facility] - Internal Med [address] [facility] [place] [address] Lionel Gould MD [address] [place] [address] MEDICATION REFILL Social History Tobacco Use Types Packs/Day Years Used Date Smoking Tobacco: Former Cigarettes 0.5 20 0 09/01/1992 - 09/01/2012 Smokeless Tobacco: Never Alcohol Use Standard Drinks/Week Comments Not Currently [...] AM CDT Legal Sex Male 5:18 PM LOGISTICS TECH Gender Identity Male 01/03/2022 11:56 AM CDT Sexual Orientation Straight 01/03/2022 11 :56 AM CDT documented as of this encounter Functional Status * Is person deaf or have serious hearing difficulty? Answer Date of Assessment Author No 08/02/2021 5:30 PM Junior Evans RN * Is person blind or have serious difficulty seeing? Answer Date of Assessment Author No 08/02/2021 5:30 PM Junior Evans RN * Does person have serious difficulty walking/climbing stairs? Answer Date of Assessment Author No 08/02/2021 5:30 PM Junior Evans RN * Does person have difficulty dressing/bathing? Answer Date of Assessment Author No 08/02/2021 5:30 PM Junior Evans RN * Does person have difficulty doing errands alone? Answer Date of Assessment Author No 08/02/2021 5:30 PM Junior Evans RN documented as of this encounter Mental Status * Does person have difficulty concentrating/remembering/making decisions? Answer Entry Date Author No 08/02/2021 5:30 PM Junior Evans RN documented in this encounter Plan of Treatment Upcoming Encounters Date Type Department Care Team (Late st Contact Info) Description 07/05/2025 9:30 AM LOGISTICS TECH Appointment [facility] NUCLEAR MEDICINE [address] [place] [phone] Lionel Gould MD [address] [place] [address] 07/05/2025 10:30 AM LOGISTICS TECH Appointment [facility] NUCLEAR MEDICINE [address] [place] [phone] Lionel Gould MD [address] [place] [address] 07/05/2025 1:00 PM LOGISTICS TECH Appointment [facility] ECHO [address] [place] [phone] Lionel Gould MD [address] [place] [address] 07/29/2025 1:00 PM LOGISTICS TECH Office Visit [facility] - Internal Med [address] [facility] [place] [phone] Lionel Gould MD [address] [place] [address] documented as of this encounter Goals Goal [...] No Christi Lopez Note: Pt enrolled in [employer] for BS monitoring. Pt will receive daily texts to cell phone at 10:30. Pt understands these are fasting BS readings. Patient opted out of [employer] program. documented as of this encounter Visit Diagnoses Not on filedocumented in this encounter Care Teams Field Administrative Assistant Relationship Specialty Start Date End Date Lionel Gould MD [address] [place] [address] PCP - General 07/05/22 Daisy Gonzalez MD [facility]5 [facility] [address] [place] [address] Neurology 03/24/24 documented as of this encounter
--- OUTSIDE RECORDS SUMMARY | 2025-05-31 20:27 | XMS_ITS | Encounter Summary ---
Author Organization [facility] Health Address [address] [facility] [place] [address] Care Team Providers Care Principal Network Architect Name Role Phone Lionel Gould MD Primary Care Provider [phone] Daisy Gonzalez MD Unavailable [phone] Reason for Visit * Reason Onset Date Comments MEDICATION REFILL 11/17/2024 Encounter Details Date Type Department Care Team (Late st Contact Info) Description 11/17/2024 Refill [facility] - Internal Med [address] [facility] [place] [address] Lionel Gould MD [address] [place] [address] MEDICATION REFILL Social History Tobacco [...] Date Recorded Patient Health Questionnaire-2 Score 4 09/20/2024 Sex and Gender Information Value Date Recorded Sex Assigned at Male 01/03/2022 11:56 AM CDT Legal Sex Male 5:18 PM DIRECTOR EMPLOYMENT Gender Identity Male 01/03/2022 11:56 AM CDT [...] st Contact Info) Description 07/05/2025 9:30 AM DIRECTOR EMPLOYMENT Appointment [facility] NUCLEAR MEDICINE [address] [place] [phone] Lionel Gould MD [address] [place] [address] 07/05/2025 10:30 AM DIRECTOR EMPLOYMENT Appointment [facility] NUCLEAR MEDICINE [address] [place] [phone] Lionel Gould MD [address] [place] [address] 07/05/2025 1:00 PM DIRECTOR EMPLOYMENT Appointment [facility] ECHO [address] [place] [phone] Loinel Gould MD [address] [place] [address] 07/29/2025 1:00 PM DIRECTOR EMPLOYMENT Office Visit [facility] - Internal Med [address] [facility] [place] [phone] Lionel Gould MD [address] [place] [address] documented as of this encounter [...] No Christi Lopez Note: Pt enrolled in [employer] for BS monitoring. Pt will receive daily texts to cell phone at 10:30. Pt understands these are fasting BS readings. Patient opted out of [employer] program. documented as of this encounter Visit Diagnoses Not on filedocumented in this encounter Care Teams Principal Network Architect Relationship Specialty Start Date End Date Lionel Gould MD [address] [place] [address] PCP - General 07/05/22 Daisy Gonzalez MD [facility] [address] [place] [address] Neurology 03/24/24 documented as of this encounter
--- OUTSIDE RECORDS SUMMARY | 2025-05-31 20:27 | XMS_ITS | Encounter Summary ---
Author Organization [facility] Health Address [address] [place] [address] Care Team Providers Care Facility Mechanic Name Role Phone Krissy Booth MD Primary Care Provider Juan Antonio Wyman APRN[facility] Primary Care Provide r Smiley Davis [facility] Primary Care Provider Lizz Chairez MD Primary Care Provider [phone] Lionel Gould MD Primary Care Provider [phone] Lizz Chairez MD Primary Care Provider [phone] Lionel Gould MD Primary Care Provider [phone] Daisy Gonzalez MD Unavailable [phone] Reason for Visit * Reason Onset Date Comments General 05/01/2018 Encounter Details Date Type Department Care Team (Late st Contact Info) Description 05/01/2018 Telephone [facility] Internal Medicine [address] [facility] [address] [place] [address] Krissy Booth MD [address] [facility] [address] [place] [address] General Social History Tobacco Use Types Packs/Day Years Used Date Smoking Tobacco: Former Cigarettes Q uit: 09/01/2012 Smokeless Tobacco: Never Alcohol Use Standard Drinks/Week Comments No 0 (1 standard drink = 0.6 oz pur e alcohol) Sex and Gender Information Value Date Recorded Sex Assigned at Male 01/03/2022 11:56 AM CDT Legal Sex Male 5:18 PM FRENCH POLISHER Gender Identity Male 01/03/2022 11:56 AM CDT [...] encounter Miscellaneous Notes * Telephone Encounter - Krissy Booth MD - 05/01/2018 1:36 PM CDT Please call. Would recommend heat/ice (15 min on, at least 15 min off) and ibuprofen over the weekend. If symptoms continue, please have him call back. If symptoms worsen or if he has any new or concerning symptoms such as numbness, weakness, or loss of continence he should go to the nearest ER. * Telephone Encounter - Luiza Sheth - 05/01/2018 1:16 PM CDT The pt states that this back strain just happened. This nurse offered to triage the pt for an acute care appt but the pt stated that he could not leave work for financial reasons but if problem continues he will call us next week In the meantime, the pt is wondering what he should do for his back strain. He stated that he neverhad a conversation with his PCP what to do if he has a back strain High Priority Please advise documented in this encounter Plan of Treatment Upcoming Encounters Date Type Department Care Team (Late st Contact Info) Description 07/05/2025 9:30 AM FRENCH POLISHER Appointment [facility] NUCLEAR MEDICINE [address] [place] [phone] Lionel Gould MD [address] [place] [phone] 07/05/2025 10:30 AM FRENCH POLISHER Appointment [facility] NUCLEAR MEDICINE [address] [place] [phone] Lionel Gould MD [address] [place] [phone] 07/05/2025 1:00 PM FRENCH POLISHER Appointment [facility] ECHO [facility] [place] [address] Lionel Gould MD [facility]5 [place] [phone] 07/29/2025 1:00 PM FRENCH POLISHER Office Visit [facility] - Internal Med [address] [facility] [place] [address] Lionel Gould MD [facility] [place] [address] documented as of this encounter Goals Goal Patient Goal Type Associated Problems Recent Progress Patient-Stated? Author HEMOGLOBIN A1C < 7.0 Result Component 6.5( 9:52 AM CDT) No Christi Lopez Note: Pt enrolled in [employer] for BS monitoring. Pt will receive daily texts to cell phone at 10:30. Pt understands these are fasting BS readings. Patient opted out of E[employer] program. documented as of this encounter Visit Diagnoses Not on filedocumented in this encounter Care Teams Facility Mechanic Relationship Specialty Start Date End Date Krissy Booth MD PCP - General 08/06/16 01/16/20 Juan Antonio Wyman APRN-BALL SORTER PCP - General 01/17/20 08/07/21 Smiley Davis APRN-BALL SORTER PCP - General 08/08/21 10/10/21 Lizz Chairez MD PCP - General 10/11/21 06/11/22 Lionel Gould MD [address] [place] [address] PCP - General Internal Medicine 06/12/22 06/12/22 Lizz Chairez MD PCP - General 06/13/22 07/04/22 Lionel Gould MD [address] [place] [address] PCP - General 07/05/22 Daisy Gonzalez MD [address] [facility] 200 [place] [phone] Neurology 03/24/24 documented as of this encounter
--- OUTSIDE RECORDS SUMMARY | 2025-05-31 20:27 | XMS_ITS | Encounter Summary ---
Author Organization [facility] Health Address [address] [facility] [place] [address] Care Team Providers Care Breaker Tender Name Role Phone Krissy Booth MD Primary Care Provider Juan Antonio Wyman [facility] Primary Care Provide r Smiley Davis [facility] Primary Care Provider Lizz Chairez MD Primary Care Provider [phone] Lionel Gould MD Primary Care Provider [phone] Lizz Chairez MD Primary Care Provider [phone] Lionel Gould MD Primary Care Provider [phone] Daisy Gonzalez MD Unavailable [phone] Reason for Visit * Reason Onset Date Comments MEDICATION REFILL 10/13/2018 Encounter Details Date Type Department Care Team (Late st Contact Info) Description 10/13/2018 Refill [facility] Internal Medicine [address] [facility] [address] [place] [address] Krissy Booth MD [address] [facility] [address] [place] [address] MEDICATION REFILL Social History Tobacco Use Types Packs/Day Years Used Date Smoking Tobacco: Former Cigarettes Q uit: 09/01/2012 Smokeless Tobacco: Never Alcohol Use Standard Drinks/Week Comments No 0 (1 standard drink = 0.6 oz pur e alcohol) Sex and Gender Information Value Date Recorded Sex Assigned at Male 01/03/2022 11:56 AM CDT Legal Sex Male 5:18 PM LEAD TECHNOLOGIST IN CYTOGENETICS Gender Identity Male 01/03/2022 11:56 AM CDT [...] Telephone Encounter - Krissy Booth MD - 10/13/2018 3:50 PM LEAD TECHNOLOGIST IN CYTOGENETICS Patient switched previously to atorvastatin. TECHNOLOGIST IN CYTOGENETICS * Telephone Encounter - Denice Pederson - 10/13/2018 9:21 AM CST Pharmacy faxing in refill request for patient's crestor. Medication attached. Allergies reviewed. Med not listed in MAR, but is listed in JENNY notes. to clarify. JENNY:10-15-18 NOV: none at this time TECHNOLOGIST IN CYTOGENETICS documented in this encounter Plan of Treatment Upcoming Encounters Date Type Department Care Team (Late st Contact Info) Description 07/05/2025 9:30 AM LEAD TECHNOLOGIST IN CYTOGENETICS Appointment [facility] NUCLEAR MEDICINE [facility] [place] [address] Lionel Gould MD [address] [place] [phone] 07/05/2025 10:30 AM LEAD TECHNOLOGIST IN CYTOGENETICS Appointment [facility] NUCLEAR MEDICINE [address] [place] [phone] Lionel Gould MD [address] [place] [address] 07/05/2025 1:00 PM LEAD TECHNOLOGIST IN CYTOGENETICS Appointment [facility] [address] [place] [address] Lionel Gould MD [address] [place] [address] 07/29/2025 1:00 PM LEAD TECHNOLOGIST IN CYTOGENETICS Office Visit [facility] - Internal Med [address] [facility] [place] [phone] Lionel Gould MD [facility] [place] [address] documented as of this encounter Goals Goal Patient Goal Type Associated Problems Recent Progress Patient-Stated? Author HEMOGLOBIN A1C < 7.0 Result Component 6.5( 9:52 AM CDT) Christi Olmedo Note: Pt enrolled in [employer] for BS monitoring. Pt will receive daily texts to cell phone at 10:30. Pt understands these are fasting BS readings. Patient opted out of Epharm[employer] program. documented as of this encounter Visit Diagnoses Not on filedocumented in this encounter Care Teams Breaker Tender Relationship Specialty Start Date End Date Krissy Booth MD PCP - General 08/06/16 01/16/20 Juan Antonio Wyman AGRICULTURE INSPECTOR-HEATER FURNACE PCP - General 01/17/20 08/07/21 Ryan Smiley, AGRICULTURE INSPECTOR-HEATER FURNACE PCP - General 08/08/21 10/10/21 Lizz Chairez MD PCP - General 10/11/21 06/11/22 Lionel Gould MD [address] [place] [address] PCP - General Internal Medicine 06/12/22 06/12/22 Lizz Chairez MD PCP - General 06/13/22 07/04/22 Lionel Gould MD [address] [place] [address] PCP - General 07/05/22 Daisy Gonzalez MD [facility] [phone] Neurology 03/24/24 documented as of this encounter
--- OUTSIDE RECORDS SUMMARY | 2025-05-31 20:27 | XMS_ITS | Encounter Summary ---
Author Organization [facility] Health Address [address] [facility] [place] [address] Care Team Providers Care Insulator Technician Name Role Phone Krissy Booth MD Primary Care Provider Juan Antonio Wyman [facility] Primary Care Provide r Smiley Davis [facility] Primary Care Provider Lizz Chairez MD Primary Care Provider [phone] Lionel Gould MD Primary Care Provider [phone] Lizz Chairez MD Primary Care Provider [phone] Lionel Gould MD Primary Care Provider Daisy Gonzalez MD Unavailable [phone] Reason for Visit * Reason Onset Date Comments MEDICATION REFILL 02/09/2018 Encounter Details Date Type Department Care Team (Late st Contact Info) Description 02/09/2018 Refill [facility] [address] [facility] [address] [place] [address] Krissy Booth MD [address] [facility] [address] [place] [address] MEDICATION REFILL Social History Tobacco Use Types Packs/Day Years Used Date Smoking Tobacco: Former Cigarettes Q uit: 09/01/2012 Smokeless Tobacco: Never Alcohol Use Standard Drinks/Week Comments No 0 (1 standard drink = 0.6 oz pur e alcohol) Sex and Gender Information Value Date Recorded Sex Assigned at Male 01/03/2022 11:56 AM CDT Legal Sex Male 5:18 PM DIELECTRIC MACHINE OPERATOR Gender Identity Male 01/03/2022 11:56 AM CDT Sexual Orientation Straight 01/03/2022 11 :56 AM CDT documented as of this encounter Miscellaneous Notes * Telephone Encounter - Marbella Hunter - 02/09/2018 10:10 AM CDT Refill request sent per protocol to provider JENNY 12-08-17 documented in this encounter Plan of Treatment Upcoming Encounters Date Type Department Care Team (Late st Contact Info) Description 07/05/2025 9:30 AM DIELECTRIC MACHINE OPERATOR Appointment [facility] NUCLEAR MEDICINE [address] [place] [address] Lionel Gould MD [address] [place] [phone] 07/05/2025 10:30 AM DIELECTRIC MACHINE OPERATOR Appointment [facility] NUCLEAR MEDICINE [address] [place] [address] Lionel Gould MD [address] [place] [phone] 07/05/2025 1:00 PM DIELECTRIC MACHINE OPERATOR Appointment [facility] ECHO [address] [place] [address] Lioenl Gould MD [address] [place] [phone] 07/29/2025 1:00 PM DIELECTRIC MACHINE OPERATOR [facility] [address] [facility] [place] [address] Lionel Gould MD [address] [place] [phone] documented as of this encounter Goals Goal Patient Goal Type Associated Problems Recent Progress Patient-Stated? Author HEMOGLOBIN A1C < 7.0 Result Component 6.5( 9:52 AM CDT) Christi Olmedo Note: Pt enrolled in [employer] for BS monitoring. Pt will receive daily texts to cell phone at 10:30. Pt understands these are fasting BS readings. Patient opted out of Epharm[employer] program. documented as of this encounter Visit Diagnoses Not on filedocumented in this encounter Care Teams Insulator Technician Relationship Specialty Start Date End Date Krissy Booth MD PCP - General 08/06/16 01/16/20 Juan Antonio Wyman APRN-AIR FORCE SENIOR OFFICER PCP - General 01/17/20 08/07/21 Smiley Davis APRN-[facility] PCP - General 08/08/21 10/10/21 Lizz Chairez MD PCP - General 10/11/21 06/11/22 Lionel Gould MD [address] [place] [address] PCP - General Internal Medicine 06/12/22 06/12/22 Lizz Chairez MD PCP - General 06/13/22 07/04/22 Lionel Gould MD [address] [place] [address] PCP - General 07/05/22 Daisy Gonzalez MD [facility] [facility] [address] [place] [address] Neurology 03/24/24 documented as of this encounter
--- OUTSIDE RECORDS SUMMARY | 2025-05-31 20:27 | XMS_ITS | Encounter Summary ---
Author Organization [facility] Health Address [address] [place] [address] Care Team Providers Care Card Clothier Name Role Phone Lionel Gould MD Primary Care Provider [phone] Daisy Gonzalez MD Unavailable [phone] Reason for Visit * Reason Onset Date Comments MEDICATION REFILL 07/04/2023 Encounter Details Date Type Department Care Team (Late st Contact Info) Description 07/04/2023 Refill [facility] - Orthopedics [address] [facility], [facility] [place] [address] Rizwana Kumar PA-C [address] [place] [address] MEDICATION REFILL Social History Tobacco Use Types [...] Answer Date Recorded Patient Health Questionnaire-2 Score 0 05/09/2023 Sex and Gender Information Value Date Recorded Sex Assigned at Male 01/03/2022 11:56 AM CDT Legal Sex Male 5:18 PM CONTACT MANAGER Gender Identity Male 01/03/2022 11:56 AM CDT [...] st Contact Info) Description 07/05/2025 9:30 AM CONTACT MANAGER Appointment [facility] NUCLEAR MEDICINE [address] [place] [phone] Lionel Gould MD [address] [place] [address] 07/05/2025 10:30 AM CONTACT MANAGER Appointment [facility] NUCLEAR MEDICINE [address] [place] [phone] Lionel Gould MD [address] [place] [address] 07/05/2025 1:00 PM CONTACT MANAGER Appointment [facility] ECHO [address] [place] [phone] Lionel Gould MD [address] [place] [address] 07/29/2025 1:00 PM CONTACT MANAGER Office Visit [facility] Physician Group - Internal Med [address] [facility] [place] [phone] Lionel Gould MD [address] [place] [address] documented as of this encounter [...] No Christi Lopez Note: Pt enrolled in [employer] for BS monitoring. Pt will receive daily texts to cell phone at 10:30. Pt understands these are fasting BS readings. Patient opted out of Epharm[employer] program. documented as of this encounter Visit Diagnoses Diagnosis Chronic right-sided low back pain with right-sided sciatica documented in this encounter Care Teams Card Clothier Relationship Specialty Start Date End Date Lionel Gould MD [address] [place] [address] PCP - General 07/05/22 Daisy Gonzalez MD [address] [facility] [address] [place] [address] Neurology 03/24/24 documented as of this encounter
--- OUTSIDE RECORDS SUMMARY | 2025-05-31 20:27 | XMS_ITS | Encounter Summary ---
Author Organization [facility] Health Address [address] [facility] [place] [address] Care Team Providers Care Contamination Consultant Name Role Phone Kathienelson Juan Antonio Adam APRN-ISAURA Primary Care Provide r Smiley Davis Primary Care Provider Lizz Chairez MD Primary Care Provider [phone] Lionel Gould MD Primary Care Provider [phone] Lizz Chairez MD Primary Care Provider [phone] Lionel Gould MD Primary Care Provider Daisy Gonzalez MD Unavailable [phone] Reason for Visit * Reason Onset Date Comments MEDICATION REFILL 07/31/2021 Encounter Details Date Type Department Care Team (Late st Contact [facility]) Description 07/31/2021 Refill [facility] General Internal Medicine [address] [facility] [address] Lizz Chairez MD [address] [place] [address] MEDICATION REFILL Social History Tobacco Use Types Packs/Day Years Used Date Smoking Tobacco: Former Cigarettes Q uit: 09/01/2012 Smokeless Tobacco: Never Alcohol Use Standard Drinks/Week Comments Yes 0 (1 standard drink = 0.6 oz pur e alcohol) occasional AUDIT-C Answer Date Recorded Q1: How often do you have a drink containing alc ohol? Never 08/02/2021 Average Number of Drinks Not on file 021 Q3: How often do you have si x or more drinks on one occasion? Never 08/02/2021 Sex and Gender Information Value Date Recorded Sex Assigned at Male 01/03/2022 11:56 AM CDT Legal Sex Male 5:18 PM FRETTED STRING INSTRUMENT REPAIRER Gender Identity Male 01/03/2022 11:56 AM CDT Sexual Orientation Straight 01/03/2022 11 :56 AM CDT documented as of this encounter Functional Status * Question Answer Date of Assessment Author Q1: How often do you have a drink containing alcohol? Never 08/02/2021 11:31 AM FRETTED STRING INSTRUMENT REPAIRER Gabriela Hawkins RN Q3: How often do you have si x or more drinks on one occasion? Never 08/02/2021 11:31 AM FRETTED STRING INSTRUMENT REPAIRER Gabriela Hawkins RN * Is person deaf or have serious [...] of Assessment Author No 02/24/2018 2:43 PM [place]ia Monreal RN documented as of this encounter Mental Status * Does person have difficulty concentrating/remembering/making decisions? Answer Entry Date Author No 02/24/2018 2:43 PM [place]ia Monreal RN documented in this encounter Miscellaneous Notes * Telephone Encounter - Mari Elliott RN - 07/31/2021 11:22 AM FRETTED STRING INSTRUMENT REPAIRER Refill Request Chaitanya Colon JENNY: 07/24/21 NOV scheduled: 11/30/21 LRF: 01/31/21 Qty Disp: 90 # of refills: 1 Allergies: Allergies Allergen Reactions ??? Propoxyphene Nausea and/or Vomiting Vomits after general anesthetics ??? Ceralyte 70 [Kdc:Red Dye+Benzoic Acid+Chloride+Citrate+Fructose+Dextrose+...] Diarrhea and Nausea and/or Vomiting Pended Medication Order: Requested Prescriptions Pending Prescriptions Disp Refills ??? atorvastatin (LIPITOR) 40 MG tablet 90 tablet 1 Sig: Take 1 (one) tablet by mouth once daily TED STRING INSTRUMENT REPAIRER documented in this encounter Plan of Treatment Upcoming Encounters Date Type Department Care Team (Late st Contact Info) Description 07/05/2025 9:30 AM FRETTED STRING INSTRUMENT REPAIRER Appointment [facility] NUCLEAR MEDICINE [address] [place] [phone] Lionel Gould MD [address] [place] [phone] 07/05/2025 10:30 AM FRETTED STRING INSTRUMENT REPAIRER Appointment [facility] NUCLEAR MEDICINE [address] [place] [phone] Lionel Gould MD [address] [place] [phone] 07/05/2025 1:00 PM FRETTED STRING INSTRUMENT REPAIRER Appointment [facility] ECHO [address] [place] [phone] Lionel Gould MD [address] [place] [phone] 07/29/2025 1:00 PM FRETTED STRING INSTRUMENT REPAIRER Office Visit [facility] Physician Group - Internal Med [facility] [place] [address] Lionel Gould MD [address] [place] [phone] documented as of this encounter Goals Goal [...] No Christi Lopez Note: Pt enrolled in [employer] for BS monitoring. Pt will receive daily texts to cell phone at 10:30. Pt understands these are fasting BS readings. Patient opted out of Epharm[employer] program. documented as of this encounter Visit Diagnoses Not on filedocumented in this encounter Care Teams Contamination Consultant Relationship Specialty Start Date End Date Juan Antonio Wyman APRN-MANAGER MENTAL HEALTH PCP - General 01/17/20 08/07/21 Smiley Davis APRN-MANAGER MENTAL HEALTH PCP - General 08/08/21 10/10/21 Lizz Chairez MD PCP - General 10/11/21 06/11/22 Lionel Gould MD [address] [place] [address] PCP - General Internal Medicine 06/12/22 06/12/22 Lizz Chairez MD PCP - General 06/13/22 07/04/22 Lionel Gould MD [address] [place] [address] PCP - General 07/05/22 Daisy Gonzalez MD [address] [facility] [address] [place] [phone] Neurology 03/24/24 documented as of this encounter
--- OUTSIDE RECORDS SUMMARY | 2025-05-31 20:27 | XMS_ITS | Encounter Summary ---
Author Organization [facility] Health Address [address] [facility] [place] [address] Care Team Providers Care Car Knocker Name Role Phone Lionel Gould MD Primary Care Provider [phone] Daisy Gonzalez MD Unavailable Reason for Visit * Reason Onset Date Comments MEDICATION REFILL 08/22/2023 Encounter Details Date Type Department Care Team (Late st Contact Info) Description 08/22/2023 Refill [facility] - Cardiology [address] [address] Kayley Quiros MD [facility] [phone] [place], [place] [phone] MEDICATION REFILL Social History Tobacco Use Types [...] AM CDT Legal Sex Male 5:18 PM COMMERCIAL DIRECTOR Gender Identity Male 01/03/2022 11:56 AM CDT Sexual Orientation Straight 01/03/2022 11 :56 AM CDT documented as of this encounter Functional Status * Is person deaf or have serious hearing difficulty? Answer Date of Assessment Author No 08/02/2021 5:30 PM COMMERCIAL DIRECTOR Junior Bauman RN * Is person blind or have serious difficulty seeing? Answer Date of Assessment Author No 08/02/2021 5:30 PM COMMERCIAL DIRECTOR Junior Bauman RN * Does person have serious difficulty [...] Junior Evans RN documented in this encounter Miscellaneous Notes * Telephone Encounter - Que Cardenas RN - 09/23/2023 2:57 PM CST Declined as sufficient refills should be on file until december. Message sent to pt via my chart. ERCIAL DIRECTOR documented in this encounter Plan of Treatment Upcoming Encounters Date Type Department Care Team (Late st Contact Info) Description 07/05/2025 9:30 AM COMMERCIAL DIRECTOR Appointment [facility] NUCLEAR MEDICINE [address] [place] [phone] Lionel Gould MD [address] [place] [address] 07/05/2025 10:30 AM COMMERCIAL DIRECTOR Appointment [facility] NUCLEAR MEDICINE [address] [place] [phone] Lionel Gould MD [address] [place] [address] 07/05/2025 1:00 PM COMMERCIAL DIRECTOR Appointment [facility] E[facility] [address] [place] [phone] Lionel Gould MD [address] [place] [address] 07/29/2025 1:00 PM COMMERCIAL DIRECTOR Office Visit [facility] Physician Group - Internal Med [address] [facility], [place] [phone] Lionel Gould MD [address] [place] [address] documented as of this encounter [...] No Christi Lopez Note: Pt enrolled in [employer] for BS monitoring. Pt will receive daily texts to cell phone at 10:30. Pt understands these are fasting BS readings. Patient opted out of Epharm[employer] program. documented as of this encounter Visit Diagnoses Not on filedocumented in this encounter Care Teams Car Knocker Relationship Specialty Start Date End Date Lionel Gould MD [address] [place] [address] PCP - General 07/05/22 Daisy Gonzalez MD [address] [place] [address] [address] [place] [address] Neurology 03/24/24 documented as of this encounter
--- OUTSIDE RECORDS SUMMARY | 2025-05-31 20:27 | XMS_ITS | Encounter Summary ---
Author Organization [facility] Health Address [address] [place] [address] Care Team Providers Care Towboat Captain Name Role Phone Lionel Gould MD Primary Care Provider [phone] Daisy Gonzalez MD Unavailable Reason for Visit * Reason Onset Date Comments MEDICATION REFILL 12/28/2023 Encounter Details Date Type Department Care Team (Late st Contact Info) Description 12/28/2023 Refill [facility] - Internal Med [address] [facility], [place] [address] Lionel Gould MD [address] [place] [address] MEDICATION REFILL Social History Tobacco [...] Date Recorded Patient Health Questionnaire-2 Score 0 09/08/2023 Sex and Gender Information Value Date Recorded Sex Assigned at Male 01/03/2022 11:56 AM CDT Legal Sex Male 5:18 PM NETWORK SOLUTIONS ARCHITECT Gender Identity Male 01/03/2022 11:56 AM CDT [...] st Contact Info) Description 07/05/2025 9:30 AM NETWORK SOLUTIONS ARCHITECT Appointment [facility] NUCLEAR MEDICINE [address] [place] [phone] Lionel Gould MD [address] [place] [address] 07/05/2025 10:30 AM NETWORK SOLUTIONS ARCHITECT Appointment [facility] NUCLEAR MEDICINE [address] [place] [phone] Lionel Gould MD [address] [place] [address] 07/05/2025 1:00 PM NETWORK SOLUTIONS ARCHITECT Appointment [facility] ECHO [address] [place] [phone] Lionel Gould MD [address] [place] [address] 07/29/2025 1:00 PM NETWORK SOLUTIONS ARCHITECT Office Visit [facility] Physician Group - Internal Med [address] [facility], [place] [phone] Lionel Gould MD [address] [place] [address] documented as of this encounter [...] No Christi Lopez Note: Pt enrolled in [employer] for BS monitoring. Pt will receive daily texts to cell phone at 10:30. Pt understands these are fasting BS readings. Patient opted out of [employer] program. documented as of this encounter Visit Diagnoses Diagnosis Type 2 diabetes mellitus without complication, without long-term current use of insulin (HCC) documented in this encounter Care Teams Towboat Captain Relationship Specialty Start Date End Date Lionel Gould MD [address] [place] [address] PCP - General 07/05/22 Daisy Gonzalez MD [facility]5 [facility] [address] [place] [phone] Neurology 03/24/24 documented as of this encounter
--- OUTSIDE RECORDS SUMMARY | 2025-05-31 20:27 | XMS_ITS | Encounter Summary ---
Author Organization [facility] Health Address [address] [place] [address] Care Team Providers Care Roofing Contractor Name Role Phone Lizz Chairez MD Primary Care Provider [phone] Lionel Gould MD Primary Care Provider [phone] Lizz Chairez MD Primary Care Provider [phone] Lionel Gould MD Primary Care Provider [phone] Daisy Gonzalez MD Unavailable [phone] Reason for Visit * Reason Onset Date Comments MEDICATION REFILL 12/23/2021 Encounter Details Date Type Department Care Team (Late st Contact Info) Description 12/23/2021 Refill [facility] General Internal Medicine [address] [facility] [place] [address] Lizz Chairez MD [address] [place] [phone] MEDICATION REFILL Social History Tobacco Use Types [...] occasion? Never 08/02/2021 PHQ-2 Answer Date Recorded PHQ2 TOTAL SCORE 3 11/20/2021 Sex and Gender Information Value Date Recorded Sex Assigned at Male 01/03/2022 11:56 AM CDT Legal Sex Male 5:18 PM RADIAL DRILL PRESS SET UP OPERATOR Gender Identity Male 01/03/2022 11:56 AM [...] st Contact Info) Description 07/05/2025 9:30 AM RADIAL DRILL PRESS SET UP OPERATOR Appointment [facility] NUCLEAR MEDICINE [facility] [place] [address] Lionel Gould MD [address] [place] [address] 07/05/2025 10:30 AM RADIAL DRILL PRESS SET UP OPERATOR Appointment [facility] NUCLEAR MEDICINE [facility] [place] [address] Lionel Gould MD [address] [place] [address] 07/05/2025 1:00 PM RADIAL DRILL PRESS SET UP OPERATOR Appointment [facility] ECHO [address] [place] [phone] Lionel Gould MD [address] [place] [address] 07/29/2025 1:00 PM RADIAL DRILL PRESS SET UP OPERATOR Office Visit [facility] - Internal Med [address] [facility] [place] [phone] Lionel Gould MD [address] [place] [address] documented as of this encounter [...] No Christi Lopez Note: Pt enrolled in [employer] for BS monitoring. Pt will receive daily texts to cell phone at 10:30. Pt understands these are fasting BS readings. Patient opted out of [employer] program. documented as of this encounter Visit Diagnoses Diagnosis Type 2 diabetes mellitus without complication, without long-term current use of insulin (HCC) documented in this encounter Care Teams Roofing Contractor Relationship Specialty Start Date End Date Lizz Chairez MD PCP - General 10/11/21 06/11/22 Lionel Gould MD [address] [place] [address] PCP - General Internal Medicine 06/12/22 06/12/22 Lizz Chairez MD PCP - General 06/13/22 07/04/22 Lionel Gould MD [address] [place] [phone] PCP - General 07/05/22 Daisy Gonzalez MD [address] [facility] [address] [place] [phone] Neurology 03/24/24 documented as of this encounter
--- OUTSIDE RECORDS SUMMARY | 2025-05-31 20:27 | XMS_ITS | Encounter Summary ---
Author Organization [facility] Health Address [address] [facility] [place] [address] Care Team Providers Care Record Tester Name Role Phone Lionel Gould MD Primary Care Provider Daisy Gonzalez MD Unavailable [phone] Reason for Visit * Reason Onset Date Comments MEDICATION REFILL 09/02/2023 Encounter Details Date Type Department Care Team (Late st Contact Info) Description 09/02/2023 Refill [facility] - [facility] Med [address] [facility] [place] [address] Lionel Gould MD [address] [place] [address] MEDICATION REFILL Social History Tobacco [...] AM CDT Legal Sex Male 5:18 PM FACULTY INSTRUCTOR Gender Identity Male 01/03/2022 11:56 AM CDT [...] st Contact Info) Description 07/05/2025 9:30 AM FACULTY INSTRUCTOR Appointment [facility] NUCLEAR MEDICINE [address] [place] [phone] Lionel Gould MD [address] [place] [address] 07/05/2025 10:30 AM FACULTY INSTRUCTOR Appointment [facility] NUCLEAR MEDICINE [address] [place] [phone] Lionel Gould MD [address] [place] [address] 07/05/2025 1:00 PM FACULTY INSTRUCTOR Appointment [facility] ECHO [address] [place] [phone] Lionel Gould MD [address] [place] [address] 07/29/2025 1:00 PM FACULTY INSTRUCTOR Office Visit [facility] - Internal Med [address] [facility] [place] [phone] Lionel Gould MD [address] [place] [address] documented as of this encounter [...] No Christi Lopez Note: Pt enrolled in [employer] for BS monitoring. Pt will receive daily texts to cell phone at 10:30. Pt understands these are fasting BS readings. Patient opted out of [employer] program. documented as of this encounter Visit Diagnoses Diagnosis Epistaxis documented in this encounter Care Teams Record Tester Relationship Specialty Start Date End Date Lionel Gould MD [address] [place] [address] PCP - General 07/05/22 Daisy Gonzalez MD [address] [facility] 200 [place] [address] Neurology 03/24/24 documented as of this encounter
--- OUTSIDE RECORDS SUMMARY | 2025-05-31 20:27 | XMS_ITS | Encounter Summary ---
Author Organization [facility] Health Address [address] [facility] [place] [address] Care Team Providers Care Personal Secretary Name Role Phone Krissy Booth MD Primary Care Provider Juan Antonio Wyman [facility] Primary Care Provide r Smiley Davis [facility] Primary Care Provider Lizz Chairez MD Primary Care Provider [phone] Lionel Gould MD Primary Care Provider [phone] Lizz Chairez MD Primary Care Provider [phone] Lionel Gould MD Primary Care Provider Daisy Gonzalez MD Unavailable [phone] Reason for Visit * Reason Onset Date Comments MEDICATION REFILL 01/12/2018 Encounter Details Date Type Department Care Team (Late st Contact Info) Description 01/12/2018 Refill [facility] Internal Medicine [address] [facility] [address] [place] [address] Krissy Booth MD [address] [facility] [address] [place] [address] MEDICATION REFILL Social History Tobacco Use Types Packs/Day Years Used Date Smoking Tobacco: Former Cigarettes Q uit: 09/01/2012 Smokeless Tobacco: Never Alcohol Use Standard Drinks/Week Comments No 0 (1 standard drink = 0.6 oz pur e alcohol) Sex and Gender Information Value Date Recorded Sex Assigned at Male 01/03/2022 11:56 AM CDT Legal Sex Male 5:18 PM WARHEAD MAINTENANCE SPECIALIST Gender Identity Male 01/03/2022 11:56 AM CDT Sexual Orientation Straight 01/03/2022 11 :56 AM CDT documented as of this encounter Plan of Treatment Upcoming Encounters Date Type Department Care Team (Late st Contact Info) Description 07/05/2025 9:30 AM WARHEAD MAINTENANCE SPECIALIST Appointment [facility] NUCLEAR MEDIC[facility] [address] [place] [phone] Lionel Gould MD [address] [place] [phone] 07/05/2025 10:30 AM WARHEAD MAINTENANCE SPECIALIST Appointment [facility] [address] [place] [phone] Lionel Gould MD [address] [place] [phone] 07/05/2025 1:00 PM WARHEAD MAINTENANCE SPECIALIST Appointment [facility] [address] [place] [phone] Lionel Gould MD [address] [place] [phone] 07/29/2025 1:00 PM WARHEAD MAINTENANCE SPECIALIST Office Visit [facility] - Internal Med [address] [facility], [place] [address] Lionel Gould MD [facility]5 [place] [address] documented as of this encounter [...] on filedocumented in this encounter Care Teams Personal Secretary Relationship Specialty Start Date End Date Krissy Booth MD PCP - General 08/06/16 01/16/20 Juan Antonio Wyman APRN-PRINTING SUPERVISOR PCP - General 01/17/20 08/07/21 Smiley Davis APRN-PRINTING SUPERVISOR PCP - General 08/08/21 10/10/21 Lizz Chairez MD PCP - General 10/11/21 06/11/22 Lionel Gould MD [address] [place] [address] PCP - General Internal Medicine 06/12/22 06/12/22 Lizz Chairez MD PCP - General 06/13/22 07/04/22 Lionel Gould MD [address] [place] [address] PCP - General 07/05/22 Daisy Gonzalez MD [address] [facility] [place] [address] [place] [address] Neurology 03/24/24 documented as of this encounter
--- OUTSIDE RECORDS SUMMARY | 2025-05-31 20:27 | XMS_ITS | Clinical Summary ---
Author Organization [facility] Address [address] [place] [address] Care Team Providers Care Aws Consultant Name Role Phone Lionel Gould MD Primary Care Provider [phone] Allergies Active Allergy Reactions Criticality Noted Date Comments General Anesthesia Vomiting 11/23/2024 Meloxicam Vomiting 11/23/2024 Medications cetirizine (ZYRTEC) 10 MG tablet Take 1 tablet (10 mg total) by mouth daily. Active gabapentin (NEURONTIN) 100 MG capsule 10/17/2024 Active atorvastatin (LIPITOR) 40 MG tablet Take 1 tablet (40 mg total) by mouth nightly at bedtime. Active cyclobenzaprine (FLEXERIL) 10 MG tablet 11/05/2024 Active escitalopram (LEXAPRO) 20 MG tablet Take 1 tablet (20 mg total) by mouth daily. Active finasteride (PROSCAR) 5 MG tablet Take 1 tablet (5 mg total) by mouth daily. Active fluticasone propionate (FLONASE) 50 MCG/ACT nasal spray Active metFORMIN ER, MOD, (GLUMETZA) 500 MG TABLET SR 24 HR 24 hr tablet Take 1 tablet (500 mg total) by mouth daily. Active dulaglutide (TRULICITY) 4.5 MG/0.5ML injection (PEN) Inject 4.5 mg into the skin once a week. Active amLODIPine (NORVASC) 10 MG tablet Take 1 tablet (10 mg total) by mouth daily. Active methocarbamol (ROBAXIN) 500 MG tablet 10/04/2024 Active Immunizations Immunization Administration Dates Next Due Tdap (Boostrix) 11/23/2024 Social History Tobacco Use Types Packs/Day Years Used Date Smoking Tobacco: Never Assessed Sex and Gender Information Value Date Recorded Sex Assigned at Male 11/23/2024 11:07 PM CDT Legal Sex Male 10:55 PM CDT Gender Identity Not on file Sexual Orientation Not on file Last Filed Vital Signs Vital Sign Reading Time Taken Comments Blood Pressure 167/101 11/23/2024 11:01 PM CDT Pulse 91 11/23/2024 11:01 PM CDT Temperature 36.6 C (97.8 F) 11/23/2024 11:01 PM CDT Respiratory Rate 20 11/23/2024 11:01 PM CDT Oxygen Saturation 100% 11/23/2024 11:01 PM CDT Inhaled Oxygen Concentration - - Weight 97.5 kg (215 lb) 11/23/2024 11:01 PM CDT Height 180.3 cm (5' 11) 11/23/2024 11:01 PM CDT Body Mass Index 29.99 11/23/2024 11:01 PM CDT Plan of Treatment Health Maintenance Due Date Last Done Comments Colorectal Cancer Screening Colonoscopy (10 Years) 1974 Annual Physical 1977 Hepatitis C 1992 Zoster Vaccines (1 of 2) 2024 DTaP, Tdap and Td Vaccines (4 - Td or Tdap) 11/23/2034 11/23/2024, 11/26/2016, 09/19/2014 Pneumococcal Vaccine: 50+ Years Completed 06/12/2022, 06/15/2018 Hepatitis B Vaccines Completed 09/20/2022, 06/12/2022, 11/01/2020 COVID-19 Vaccine Completed 07/16/2024, , 07/06/2022, Additional history exists Meningococcal B Vaccine Aged Out No l onger eligible based on patient's age to complete this topic Meningococcal Vaccine Aged Out No cesario flavio eligible based on patient's age to complete this topic RSV Immunizations Under 20 Months Aged Out No longer eligible based on patient's age to complete this topic Insurance [facility] Care Teams Aws Consultant Relationship Specialty Start Date End Date Lionel Gould MD [address] [place] [address] PCP - General INTERNAL MEDICINE 11/23/24
--- NOTE | 2025-05-31 20:31 | ED.ABDPAIN ---
HPI - Abdominal Pain General Chief Complaint: Abdominal Pain Stated Complaint: abdominal pain Time Seen by Provider: 05/31/25 20:31 Source: patient Mode of arrival: ambulatory Limitations: no limitations History of Present Illness HPI narrative: year old male a history of anxiety /depression, dyslipidemia, diabetes mellitus, status post cholecystectomy, status post hernia repair presents to the ED the 4 day history of -- left lower quadrant abdominal pain. pain is is constant intermittent worsening. Pain is rated as 8/10. No radiation of the pain. Pain is worsened by movement. No fever or chills. No nausea/vomiting. No diarrhea. MD elicited complaint: abdominal pain Pertinent past history: none Onset (ago): day(s) ( Four days) Pain Consistency: constant and intermittent Location: LLQ Severity: severe Pain scale (0-10): 8 Quality: cramping Radiation: none Migration to: no migration Exacerbating factors: movement Associated symptoms: denies other symptoms Related Data Home Medications ?Medication ?Instructions ?Recorded ?Confirmed ?Last Taken ?Type atorvastatin 40 mg tablet 40 mg PO DAILY 08/22/20 08/22/20 Unknown History ergocalciferol (vitamin D2) 1,250 1,250 mcg PO DAILY 08/22/20 08/22/20 Unknown History mcg (50,000 unit) capsule escitalopram oxalate 20 mg tablet 20 mg PO DAILY 08/22/20 08/22/20 Unknown History metformin 500 mg tablet,extended 500 mg PO BID 08/22/20 08/22/20 Unknown History release 24 hr oxybutynin chloride 5 mg 5 mg PO DAILY 08/22/20 08/22/20 Unknown History tablet,extended release 24 hr Allergies Allergy/AdvReac Type Severity Reaction Status Date / Time Anesthetics - Amide Type - AdvReac Unknown Nausea and Verified 05/31/25 20:33 Select A Vomiting Anesthetics - Kaylin Type- AdvReac Unknown Nausea and Verified 05/31/25 20:33 Parabens Vomiting Review of Systems Review of Systems: All systems reviewed & are unremarkable except as noted in HPI and below Constitutional: Constitutional: Reports as per HPI and Reports no additional constitutional complaints Eyes: Eyes: Reports as per HPI and Reports no additional eye complaints ENT: Reports system reviewed and no additional complaints, except as documented and Reports as per HPI Cardiovascular: Cardiovascular: Reports as per HPI and Reports no additional cardiovascular complaints Respiratory: Respiratory: Reports as per HPI and Reports no additional respiratory complaints Gastrointestinal: Gastrointestinal: Reports as per HPI, Reports no additional gastrointestinal complaints and Reports abdominal pain Genitourinary: Genitourinary: Reports no additional male genitourinary complaints and Reports as per HPI Musculoskeletal: Musculoskeletal: Reports no additional musculoskeletal complaints and Reports as per HPI Integumentary/Breasts: Skin/Breast: Reports system reviewed and no additional complaints, except as docu and Reports as per HPI Neurologic: Reports system reviewed and no additional complaints, except as documented and Reports as per HPI Psychiatric: Psychiatric: Reports no additional psychiatric complaints and Reports as per HPI Endocrine: Endocrine: Reports no additional endocrine complaints and Reports as per HPI Hematologic/Lymphatic: Hematologic/Lymphatic: Reports no additional hematologic/lymphatic complaints and Reports as per HPI Allergic/Immunologic: Allergic/Immunologic: Reports no additional allergic/immunologic complaints and Reports as per HPI [facility] Past Medical History Medical History Depression with anxiety Hyperlipidemia Type 2 diabetes mellitus Surgical History Surgical History H/O inguinal hernia repair History of cholecystectomy Social History Social History Smoking status: Former smoker Alcohol use details: occasional Substance use: never Exam Narrative: Pulse of 106. Blood pressure 131/89. Afebrile. Const: Orientation/consciousness: patient oriented x3 Limitations: no limitations HENMT: Head: normal to inspection Ears: external ears normal Face/Nose/Sinus: Normal external nose present Face and sinus: normal facial exam Mouth: Yes Normal oral and palatal mucosa present Throat: posterior oropharynx normal Eyes: Conjunctivae: conjunctivae normal Pupils: Equal, round and reactive pupils present EOM: EOMs intact bilaterally Direct Ophthalmoscopy: no photophobia Neck: Neck: normal visual inspection, no lymphadenopathy and no meningeal signs Chest: Chest palpation & inspection: normal inspection of the chest Resp: Effort & Inspection: normal respiratory effort Auscultation: clear to auscultation bilaterally Cardio: Rate: regular rate Rhythm: regular rhythm GI: GI Palp: Yes Soft to palpation Auscultation: normal bowel sounds Other: Tenderness left lower quadrant. No rigidity /rebound. : General: Yes no CVA tenderness Back/Spine/Pelvis: Back: no CVA tenderness Skin: General skin exam: normal color Rashes: no rashes Wounds: no wounds Neuro: General: patient oriented x3, moves all extremities, no meningeal signs, no focal motor deficits and CN's II-XI intact bilaterally Cranial nerves: Yes Nystagmus not present Speech: normal speech Gait exam (Neuro): Normal gait present Course Course Emergency Course: Left lower quadrant abdominal pain-- patient received IV Dilaudid and Compazine. Blood work revealed a normal white cell count, normal lactate, normal lipase and a negative UA. Patient complains of ongoing severe left lower quadrant abdominal pain. Will get a CT of the abdomen and pelvis. abdominal pain has resolved. The patient has ongoing tenderness in the left lower quadrant. CT of the abdomen revealed sigmoid colon pericolonic stranding/ epiploic appendagitis. will discharge the patient on Augmentin and Motrin Vital Signs Vital signs: Vital Signs Temperature 36.9 C 05/31/25 20:26 Pulse Rate 106 H 05/31/25 20:26 Respiratory Rate 22 H 05/31/25 20:26 Blood Pressure 131/89 05/31/25 20:26 Pulse Oximetry 97 05/31/25 20:26 Oxygen Delivery Room Air 05/31/25 20:26 Temperature 36.9 C 05/31/25 20:26 Pulse Rate 106 H 05/31/25 20:26 Respiratory Rate 22 H 05/31/25 20:26 Blood Pressure 131/89 05/31/25 20:26 Pulse Oximetry 97 05/31/25 20:26 Oxygen Delivery Room Air 05/31/25 20:26 MDM - Abdominal Pain MDM Narrative Medical decision making narrative: epiploic appendagitis diverticulitis Differential Diagnosis Differential diagnosis: Likely calculus of kidney Medical Records Attestation: I reviewed the patient's medical records. Lab Data Attestation: I reviewed the patient's lab results. 05/31/25 20:59 05/31/25 20:59 Labs: Lab Results 05/31/25 05/31/25 Range/Units 20:59 21:41 WBC 8.0 (4.8-10.8) K/mm3 RBC 5.15 (4.70-6.10) M/mm3 Hgb 14.9 (14.0-18.0) g/dL Hct 43.3 (40.0-54.0) % MCV 84.1 (78.0-102.0) fL MCH 28.9 (27.0-31.0) pg MCHC 34.4 (32-36) g/dL RDW 11.9 (11.6-14.4) % Plt Count 414 (150-420) K/mm3 MPV 10.4 (8.7-11.0) fl Immature Gran % (Auto) 0.5 H (0.0-0.0) % Neut % (Auto) 56.8 (50.0-70.0) % Lymph % (Auto) 34.3 (18.0-42.0) % Pike % (Auto) 5.5 (2.0-11.0) % Eos % (Auto) 2.3 (1.0-6.0) % Baso % (Auto) 0.6 (0.0-1.0) % Lymph # (Auto) 2.73 (1.10-4.50) K/mm3 Pike # (Auto) 0.44 (0.10-0.90) K/mm3 Eos # (Auto) 0.18 (0.02-0.50) K/mm3 Baso # (Auto) 0.05 (0.00-0.10) K/mm3 Abs Immat Gran (auto) 0.04 H (0.00-0.00) K/mm3 Absolute Neuts (auto) 4.52 (1.70-7.20) K/mm3 Absolute Nucleated RBC 0.00 (0.00-0.00) K/mm3 Nucleated RBC % 0.0 (0-0.0) % Sodium 142 (137-145) mmol/L Potassium 4.6 (3.4-5.0) mmol/L Chloride 102 (98-107) mmol/L Carbon Dioxide 27 (22-30) mmol/L Anion Gap 13 H (4-12) mmol/L BUN 12 (9-20) mg/dL Creatinine 0.90 (0.7-1.3) mg/dL Estim Creat Clear Calc 106 ml/min Estimated GFR > 60 (59 - ) Glucose 167 H (65-110) mg/dL Calculated Osmolality 297 H (285-295) mOsm/kg Lactic Acid 1.9 (0.4-2.0) mmol/L Calcium 9.8 (8.4-10.2) mg/dL Total Bilirubin 1.4 H (0.2-1.3) mg/dL AST 53 (17-59) U/L ALT 39 (6-50) U/L Alkaline Phosphatase 80 (38-126) U/L Troponin I < 0.012 (0.000-0.034) ng/mL Total Protein 10.2 H (6.3-8.2) g/dL Albumin 5.0 (3.5-5.1) g/dL Lipase 211 (23-300) U/L Urine Color Yellow (Yellow) Urine Appearance Clear (Clear) Urine pH 7.5 (5.0-8.0) Ur Specific [place] 1.015 (1.010-1.020) Urine Protein Negative (Negative) Urine Glucose (UA) Negative (Negative) Urine Ketones Trace H (Negative) Ur Blood (Man) Negative (Negative) Urine Nitrate Negative (Negative) Urine Bilirubin Negative (Negative) Urine Urobilinogen 0.2 (0.2-1.0) mg/dL Leukocyte Esterase Rfl Negative (Negative) JASPER/UL Discharge Plan Discharge Clinical Impression: Diverticulitis, Epiploic appendagitis Patient Disposition: Home Condition: Stable Instructions: Antibiotic Form, Diverticulitis (ED), Epiploic Appendagitis (ED) Patient Language: Irish Prescriptions: New amoxicillin-pot clavulanate 875-125 mg tablet 1 tablet PO Q12H Qty: 14 0RF No Action atorvastatin 40 mg tablet 40 mg PO DAILY oxybutynin chloride 5 mg tablet extended release 24hr 5 mg PO DAILY ergocalciferol (vitamin D2) 1,250 mcg (50,000 unit) capsule 1,250 mcg PO DAILY metformin 500 mg tablet extended release 24 hr 500 mg PO BID escitalopram oxalate 20 mg tablet 20 mg PO DAILY hydrocodone-acetaminophen [[place]] 7.5-325 mg tablet 1 tablet PO Q8H PRN (Reason: pain) Qty: 20 0RF Follow-up/Referrals: UNKNOWN,DOCTOR [Non-Staff] Time of Disposition: 23:08
[2025-05-31] MEDS: LACTATED RINGERS 1,000 ML 999 ML IV CONT (21:04)
[2025-05-31] MEDS: HYDROmorphone HCL INJ (*CRX) 2 MG/ML VIAL 0.5 MG IV PUSH (21:05)
[2025-05-31] MEDS: PROCHLORPERAZINE EDISYLATE 10 MG/2 ML VIAL IV PUSH (21:05)
[2025-05-31 21:21] LABS: Hematocrit 43.3 % (40.0-54.0); Hemoglobin 14.9 g/dL (14.0-18.0); Immature Granulocyte Percent A 0.5 % (0.0-0.0); Lymphocytes Absolute Auto 2.73 K/mm3 (1.10-4.50); Mean Corpuscular HGB Conc 34.4 g/dL (32-36); Mean Corpuscular Hemoglobin 28.9 pg (27.0-31.0); Mean Corpuscular Volume 84.1 fL (78.0-102.0); Nucleated Red Blood Cells Absolute Auto 0.00 K/mm3 (0.00-0.00); Nucleated Red Blood Cells Perc 0.0 % (0-0.0); Platelet Count Result 414 K/mm3 (150-420); Red Blood Count 5.15 M/mm3 (4.70-6.10); White Blood Count 8.0 K/mm3 (4.8-10.8)
--- OUTSIDE RECORDS SUMMARY | 2025-05-31 21:31 | XMS_ITS | Encounter Summary ---
Author Organization [facility] Health Address [address] [facility] [place] [address] Care Team Providers Care Window Repairer Name Role Phone Lionel Gould MD Primary Care Provider Daisy Gonzalez MD Unavailable [phone] Reason for Visit * Reason Onset Date Comments MEDICATION REFILL 11/17/2024 Encounter Details Date Type Department Care Team (Late st Contact Info) Description 11/17/2024 Refill [facility] - [facility] Med [address] [facility], [place] [address] Lionel Gould MD [address] [place] [address] MEDICATION REFILL Social History Tobacco [...] AM CDT Legal Sex Male 5:18 PM GI ASST Gender Identity Male 01/03/2022 11:56 AM CDT [...] st Contact Info) Description 07/05/2025 9:30 AM GI ASST Appointment [facility] NUCLEAR MEDICINE [address] [place] [phone] Lionel Gould MD [address] [place] [address] 07/05/2025 10:30 AM GI ASST Appointment [facility] NUCLEAR MEDICINE [address] [place] [phone] Lionel Gould MD [address] [place] [address] 07/05/2025 1:00 PM GI ASST Appointment [facility] ECHO [address] [place] [phone] Lionel Gould MD [address] [place] [address] 07/29/2025 1:00 PM GI ASST Office Visit [facility] - Internal Med [address] [facility] [place] [phone] Lionel Gould MD [address] [place] [address] documented as of this encounter [...] No Christi Lopez Note: Pt enrolled in [employer] for BS monitoring. Pt will receive daily texts to cell phone at 10:30. Pt understands these are fasting BS readings. Patient opted out of [employer] program. documented as of this encounter Visit Diagnoses Not on filedocumented in this encounter Care Teams Window Repairer Relationship Specialty Start Date End Date Lionel Gould MD [address] [place] [address] PCP - General 07/05/22 Daisy Gonzalez MD [facility] [address] [place] [address] Neurology 03/24/24 documented as of this encounter
--- OUTSIDE RECORDS SUMMARY | 2025-05-31 21:31 | XMS_ITS | Encounter Summary ---
Author Organization [facility] Health Address [address] [facility] [place] [address] Care Team Providers Care Commercial Solar Sales Consultant Name Role Phone Lionel Gould MD Primary Care Provider [phone] Daisy Gonzalez MD Unavailable [phone] Reason for Visit * Reason Onset Date Comments MEDICATION REFILL 07/04/2023 Encounter Details Date Type Department Care Team (Late st Contact Info) Description 07/04/2023 Refill [facility] [address] [facility] [address] Rizwana Kumar PA-C [address] [place] [address] MEDICATION REFILL Social History Tobacco Use [...] AM CDT Legal Sex Male 5:18 PM STREETCAR REPAIRER HELPER Gender Identity Male 01/03/2022 11:56 AM CDT [...] st Contact Info) Description 07/05/2025 9:30 AM STREETCAR REPAIRER HELPER Appointment [facility] NUCLEAR MEDICINE [address] [place] [phone] Lionel Gould MD [address] [place] [address] 07/05/2025 10:30 AM STREETCAR REPAIRER HELPER Appointment [facility] NUCLEAR MEDICINE [address] [place] [phone] Lionel Gould MD [address] [place] [address] 07/05/2025 1:00 PM STREETCAR REPAIRER HELPER Appointment [facility] ECHO [address] [place] [phone] Lionel Gould MD [address] [place] [address] 07/29/2025 1:00 PM STREETCAR REPAIRER HELPER Office Visit [facility] Group - Internal Med [address] [facility], [place] [phone] Lionel Gould MD [address] [place] [address] documented as of this encounter [...] No Christi Lopez Note: Pt enrolled in [employer] for BS monitoring. Pt will receive daily texts to cell phone at 10:30. Pt understands these are fasting BS readings. Patient opted out of Epharmix program. documented as of this encounter Visit Diagnoses Diagnosis Chronic right-sided low back pain with right-sided sciatica documented in this encounter Care Teams Commercial Solar Sales Consultant Relationship Specialty Start Date End Date Lionel Gould MD [address] [place] [address] PCP - General 07/05/22 Daisy Gonzalez MD [address] [facility] [address] [place] [address] Neurology 03/24/24 documented as of this encounter
--- OUTSIDE RECORDS SUMMARY | 2025-05-31 21:31 | XMS_ITS | Encounter Summary ---
Author Organization [facility] Health Address [address] [facility] [place] [address] Care Team Providers Care Marine Engineering Technicians Name Role Phone Lionel Gould MD Primary Care Provider [phone] Daisy Gonzalez MD Unavailable [phone] Reason for Visit * Reason Onset Date Comments MEDICATION REFILL 09/02/2023 Encounter Details Date Type Department Care Team (Late st Contact Info) Description 09/02/2023 Refill [facility] [address] [facility], [place] [address] Lionel Gould MD [address] [place] [address] MEDICATION REFILL Social History Tobacco [...] AM CDT Legal Sex Male 5:18 PM WOMEN'S MINISTRY DIRECTOR Gender Identity Male 01/03/2022 11:56 AM [...] st Contact Info) Description 07/05/2025 9:30 AM WOMEN'S MINISTRY DIRECTOR Appointment [facility] NUCLEAR MEDICINE [address] [place] [phone] Lionel Gould MD [address] [place] [address] 07/05/2025 10:30 AM WOMEN'S MINISTRY DIRECTOR Appointment [facility] NUCLEAR MEDICINE [address] [place] [phone] Lionel Gould MD [address] [place] [address] 07/05/2025 1:00 PM WOMEN'S MINISTRY DIRECTOR Appointment [facility] ECHO [address] [place] [phone] Lionel Gould MD [address] [place] [address] 07/29/2025 1:00 PM WOMEN'S MINISTRY DIRECTOR Office Visit [facility] - Internal Med [address] [facility], [place] [address] Lionel Gould MD [address] [place] [address] documented as of this encounter [...] No Christi Lopez Note: Pt enrolled in [employer] for BS monitoring. Pt will receive daily texts to cell phone at 10:30. Pt understands these are fasting BS readings. Patient opted out of Epharmix program. documented as of this encounter Visit Diagnoses Diagnosis Epistaxis documented in this encounter Care Teams Marine Engineering Technicians Relationship Specialty Start Date End Date Lionel Gould MD [address] [place] [address] PCP - General 07/05/22 Daisy Gonzalez MD [address] [facility] 200 [place] [address] Neurology 03/24/24 documented as of this encounter
--- OUTSIDE RECORDS SUMMARY | 2025-05-31 21:31 | XMS_ITS | Encounter Summary ---
Author Organization [facility] Health Address [address] [place] [address] Care Team Providers Care Composition Worker Name Role Phone Lionel Gould MD Primary Care Provider [phone] Daisy Gonzalez MD Unavailable [phone] Reason for Visit * Reason Onset Date Comments MEDICATION REFILL 04/05/2025 Encounter Details Date Type Department Care Team (Late st Contact Info) Description 04/05/2025 Refill [facility] [address] [facility], [place] [address] Lionel Gould MD [address] [place] [address] MEDICATION REFILL Social History Tobacco [...] AM CDT Legal Sex Male 5:18 PM MILK RECEIVER TANK TRUCK Gender Identity Male 01/03/2022 11:56 AM CDT [...] st Contact Info) Description 07/05/2025 9:30 AM MILK RECEIVER TANK TRUCK Appointment [facility] NUCLEAR MEDICINE [address] [place] [phone] Lionel Gould MD [address] [place] [address] 07/05/2025 10:30 AM MILK RECEIVER TANK TRUCK Appointment [facility] NUCLEAR MEDICINE [address] [place] [phone] Lionel Gould MD [address] [place] [address] 07/05/2025 1:00 PM MILK RECEIVER TANK TRUCK Appointment [facility] ECHO [address] [place] [phone] Lionel Gould MD [address] [place] [address] 07/29/2025 1:00 PM MILK RECEIVER TANK TRUCK Office Visit [facility] Physician Group - Internal Med [address] [facility], [place] [address] Lionel Gould MD [address] [place] [address] documented as of this encounter [...] No Christi Lopez Note: Pt enrolled in [employer] for BS monitoring. Pt will receive daily texts to cell phone at 10:30. Pt understands these are fasting BS readings. Patient opted out of Epharmix program. documented as of this encounter Visit Diagnoses Not on filedocumented in this encounter Care Teams Composition Worker Relationship Specialty Start Date End Date Lionel Gould MD [address] [place] [address] PCP - General 07/05/22 Daisy Gonzalez MD [facility]5 [facility] 200 [place] [address] Neurology 03/24/24 documented as of this encounter
--- OUTSIDE RECORDS SUMMARY | 2025-05-31 21:31 | XMS_ITS | Encounter Summary ---
Author Organization [facility] Health Address [address] [facility] [place] [address] Care Team Providers Care Pan Tank Worker Name Role Phone Krissy Booth MD Primary Care Provider Juan Antonio Wyman [facility] Primary Care Provide r Smiley Davis [facility] Primary Care Provider Lizz Chairez MD Primary Care Provider [phone] Lionel Gould MD Primary Care Provider [phone] Lizz Chairez MD Primary Care Provider [phone] Lionel Gould MD Primary Care Provider Daisy Gonzalez MD Unavailable [phone] Reason for Visit * Reason Onset Date Comments Follow-up 05/05/2018 pt declined tria ge for ACS Encounter Details Date Type Department Care Team (Late st Contact Info) Description 05/05/2018 Telephone [facility] [address] [facility] [address] [place] [address] Krissy Booth MD [address] [facility] [address] [place] [address] Follow-up (pt declined triage for ACS ) Social History Tobacco Use Types Packs/Day Years Used Date Smoking Tobacco: Former Cigarettes Q uit: 09/01/2012 Smokeless Tobacco: Never Alcohol Use Standard Drinks/Week Comments No 0 (1 standard drink = 0.6 oz pur e alcohol) Sex and Gender Information Value Date Recorded Sex Assigned at Male 01/03/2022 11:56 AM CDT Legal Sex Male 5:18 PM PERSONAL FINANCE INSTRUCTOR Gender Identity Male 01/03/2022 11:56 AM [...] st Contact Info) Description 07/05/2025 9:30 AM PERSONAL FINANCE INSTRUCTOR Appointment [facility] NUCLEAR MEDICINE [address] [place] [phone] Lionel Gould MD [facility]9 [place] [phone] 07/05/2025 10:30 AM PERSONAL FINANCE INSTRUCTOR Appointment [facility] NUCLEAR MEDICINE [address] [place] [phone] Lionel Gould MD [address] [place] [address] 07/05/2025 1:00 PM PERSONAL FINANCE INSTRUCTOR Appointment [facility] ECHO [facility][note 3]1 [place] [address] Lionel Gould MD [address] [place] [address] 07/29/2025 1:00 PM PERSONAL FINANCE INSTRUCTOR Office Visit [facility] Physician Group - Internal Med [address] [place] [address] [place] [address] Lionel Gould MD [address] [place] [address] documented as of this encounter Goals Goal Patient Goal Type Associated Problems Recent Progress Patient-Stated? Author HEMOGLOBIN A1C < 7.0 Result Component 6.5(07/14/202 5 9:52 AM CDT) Christi Olmedo Note: Pt enrolled in [employer] for BS monitoring. Pt will receive daily texts to cell phone at 10:30. Pt understands these are fasting BS readings. Patient opted out of Epharmix program. documented as of this encounter Visit Diagnoses Not on filedocumented in this encounter Care Teams Pan Tank Worker Relationship Specialty Start Date End Date Krissy Booth MD PCP - General 08/06/16 01/16/20 Juan Antonio Wyman APRN-MICROBIOLOGICAL LAB TECHNICIAN PCP - General 01/17/20 08/07/21 Smiley Davis APRN-MICROBIOLOGICAL LAB TECHNICIAN PCP - General 08/08/21 10/10/21 Lizz Chairez MD PCP - General 10/11/21 06/11/22 Lionel Gould MD [address] [place] [address] PCP - General Internal Medicine 06/12/22 06/12/22 Lizz Chairez MD PCP - General 06/13/22 07/04/22 Lionel Gould MD [address] [place] [address] PCP - General 07/05/22 Daisy Gonzalez MD [address] [place] [address] Neurology 03/24/24 documented as of this encounter
--- OUTSIDE RECORDS SUMMARY | 2025-05-31 21:31 | XMS_ITS | Encounter Summary ---
Author Organization [facility] Health Address [address] [facility] [place] [address] Care Team Providers Care Dice Maker Name Role Phone Lizz Chairez MD Primary Care Provider [phone] Lionel Gould MD Primary Care Provider [phone] Lizz Chairez MD Primary Care Provider [phone] Lionel Gould MD Primary Care Provider [phone] Daisy Gonzalez MD Unavailable Reason for Visit * Reason Onset Date Comments MEDICATION REFILL 12/23/2021 Encounter Details Date Type Department Care Team (Late st Contact Info) Description 12/23/2021 Refill [facility] Internal Medicine [address] [facility] [place] [address] Lizz Chairez MD 1 [place] [address] MEDICATION REFILL Social History Tobacco Use Types [...] AM CDT Legal Sex Male 5:18 PM SECTION 8 PROPERTY MANAGER Gender Identity Male 01/03/2022 11:56 AM [...] st Contact Info) Description 07/05/2025 9:30 AM SECTION 8 PROPERTY MANAGER Appointment [facility] NUCLEAR MEDICINE [facility]1 [place] [address] Lionel Gould MD [address] [place] [address] 07/05/2025 10:30 AM SECTION 8 PROPERTY MANAGER Appointment [facility] NUCLEAR MEDICINE [facility]1 [place] [address] Lionel Gould MD [address] [place] [address] 07/05/2025 1:00 PM SECTION 8 PROPERTY MANAGER Appointment [facility] ECHO [address] [place] [address] Lionel Gould MD [address] [place] [address] 07/29/2025 1:00 PM SECTION 8 PROPERTY MANAGER Office Visit [facility]ician Group - Internal Med [address] [facility], [place] [address] Lionel Gould MD [address] [place] [address] documented as of this encounter [...] No Christi Lopez Note: Pt enrolled in [employer] for BS monitoring. Pt will receive daily texts to cell phone at 10:30. Pt understands these are fasting BS readings. Patient opted out of Epharmix program. documented as of this encounter Visit Diagnoses Diagnosis Type 2 diabetes mellitus without complication, without long-term current use of insulin (HCC) documented in this encounter Care Teams Dice Maker Relationship Specialty Start Date End Date Lizz Chairez MD PCP - General 10/11/21 06/11/22 Lionel Gould MD [address] [place] [address] PCP - General Internal Medicine 06/12/22 06/12/22 Lizz Chairez MD PCP - General 06/13/22 07/04/22 Lionel Gould MD [address] [place] [address] PCP - General 07/05/22 Daisy Gonzalez MD [address] [facility] 200 [place] [address] Neurology 03/24/24 documented as of this encounter
--- OUTSIDE RECORDS SUMMARY | 2025-05-31 21:31 | XMS_ITS | Clinical Summary ---
Author Organization [facility] Address [address] [place] [address] Care Team Providers Care Professor In Family Studies Name Role Phone Lionel Gould MD Primary Care Provider [phone] Allergies Active Allergy Reactions Criticality Noted Date [...] patient's age to complete this topic Insurance [facility] Care Teams Professor In Family Studies Relationship Specialty Start Date End Date Lionel Gould MD [address] [place] [address] PCP - General INTERNAL MEDICINE 11/23/24
--- OUTSIDE RECORDS SUMMARY | 2025-05-31 21:31 | XMS_ITS | Encounter Summary ---
Author Organization [facility] Health Address [address] [place] [address] Care Team Providers Care Consumer Recruiter Name Role Phone Lionel Gould MD Primary Care Provider [phone] Daisy Gonzalez MD Unavailable [phone] Reason for Visit * Reason Onset Date Comments MEDICATION REFILL 08/22/2023 Encounter Details Date Type Department Care Team (Late st Contact Info) Description 08/22/2023 Refill [facility] [address] [address] Kayley Quiros MD [facility]4 [place] [address] [place], [place] [phone] MEDICATION REFILL Social History Tobacco Use Types [...] AM CDT Legal Sex Male 5:18 PM RENTAL CAR FERRY DRIVER Gender Identity Male 01/03/2022 11:56 AM CDT Sexual Orientation Straight 01/03/2022 11 :56 AM CDT documented as of this encounter Functional Status * Is person deaf or have serious hearing difficulty? Answer Date of Assessment Author No 08/02/2021 5:30 PM RENTAL CAR FERRY DRIVER Junior Bauman RN * Is person blind or have serious difficulty seeing? Answer Date of Assessment Author No 08/02/2021 5:30 PM RENTAL CAR FERRY DRIVER Junior Bauman RN * Does person have [...] Message sent to pt via my chart. AL CAR FERRY DRIVER documented in this encounter Plan of Treatment Upcoming Encounters Date Type Department Care Team (Late st Contact Info) Description 07/05/2025 9:30 AM RENTAL CAR FERRY DRIVER Appointment [facility] NUCLEAR MEDICINE [address] [place] [phone] Lionel Gould MD [address] [place] [address] 07/05/2025 10:30 AM RENTAL CAR FERRY DRIVER Appointment [facility] NUCLEAR MEDICINE [address] [place] [phone] Lionel Gould MD [address] [place] [address] 07/05/2025 1:00 PM RENTAL CAR FERRY DRIVER Appointment [facility] ECHO [address] [place] [address] Lionel Gould MD [address] [place] [address] 07/29/2025 1:00 PM RENTAL CAR FERRY DRIVER Office Visit [facility] Physician Group - Internal Med [address] [facility] [place] [address] Lionel Gould MD [address] [place] [address] documented as of this encounter [...] No Christi Lopez Note: Pt enrolled in [employer] for BS monitoring. Pt will receive daily texts to cell phone at 10:30. Pt understands these are fasting BS readings. Patient opted out of Epharmix program. documented as of this encounter Visit Diagnoses Not on filedocumented in this encounter Care Teams Consumer Recruiter Relationship Specialty Start Date End Date Lionel Gould MD [address] [place] [address] PCP - General 07/05/22 Daisy Gonzalez MD [address] [place] [address] [address] [place] [address] Neurology 03/24/24 documented as of this encounter
--- OUTSIDE RECORDS SUMMARY | 2025-05-31 21:31 | XMS_ITS | Encounter Summary ---
Author Organization [facility] Health Address [address] [facility] [place] [address] Care Team Providers Care Info Print Press Operator Name Role Phone Kathienelson Juan Antonio Adam APRN-ISAURA Primary Care Provide r Smiley Davis Primary Care Provider Lizz Chairez MD Primary Care Provider [phone] Lionel Gould MD Primary Care Provider [phone] Lizz Chairez MD Primary Care Provider [phone] Lionel Gould MD Primary Care Provider [phone] Daisy Gonzalez MD Unavailable [phone] Reason for Visit * Reason Onset Date Comments MEDICATION REFILL 07/31/2021 Encounter Details Date Type Department Care Team (Late st Contact [facility]) Description 07/31/2021 Refill [facility] General Internal Medicine [address] [facility] [place] [address] Lizz Chairez MD [address] [place] [address] MEDICATION REFILL Social History Tobacco [...] AM CDT Legal Sex Male 5:18 PM STATION INSTALLER AND REPAIRER Gender Identity Male 01/03/2022 11:56 AM CDT Sexual Orientation Straight 01/03/2022 11 :56 AM CDT documented as of this encounter Functional Status * Question Answer Date of Assessment Author Q1: How often do you have a drink containing alcohol? Never 08/02/2021 11:31 AM STATION INSTALLER AND REPAIRER Gabriela Hawkins RN Q3: How often do you have si x or more drinks on one occasion? Never 08/02/2021 11:31 AM STATION INSTALLER AND REPAIRER Gabriela Hawkins RN * Is person [...] Mari Elliott RN - 07/31/2021 11:22 AM STATION INSTALLER AND REPAIRER Refill Request Chaitanya Colon JENNY: 07/24/21 [...] 1 (one) tablet by mouth once daily ION INSTALLER AND REPAIRER documented in this encounter Plan of Treatment Upcoming Encounters Date Type Department Care Team (Late st Contact Info) Description 07/05/2025 9:30 AM STATION INSTALLER AND REPAIRER Appointment [facility] NUCLEAR MEDICINE [address] [place] [phone] Lionel Gould MD [address] [place] [phone] 07/05/2025 10:30 AM STATION INSTALLER AND REPAIRER Appointment [facility] NUCLEAR MEDICINE [address] [place] [phone] Lionel Gould MD [address] [place] [address] 07/05/2025 1:00 PM STATION INSTALLER AND REPAIRER Appointment [facility] ECHO [address] [place] [phone] Lionel Gould MD [address] [place] [phone] 07/29/2025 1:00 PM STATION INSTALLER AND REPAIRER Office Visit [facility] Physician Group - Internal Med [facility]5 [facility] [place] [address] Lionel Gould MD [address] [place] [phone] documented as of this encounter Goals Goal [...] No Christi Lopez Note: Pt enrolled in [employer] for BS monitoring. Pt will receive daily texts to cell phone at 10:30. Pt understands these are fasting BS readings. Patient opted out of Epharmix program. documented as of this encounter Visit Diagnoses Not on filedocumented in this encounter Care Teams Info Print Press Operator Relationship Specialty Start Date End Date Juan Antonio Wyman APRN-EXTERNAL GRINDER TENDER PCP - General 01/17/20 08/07/21 Smiley Davis APRN-EXTERNAL GRINDER TENDER PCP - General 08/08/21 10/10/21 Lizz Chairez MD PCP - General 10/11/21 06/11/22 Lionel Gould MD [address] [place] [address] PCP - General Internal Medicine 06/12/22 06/12/22 Lizz Chairez MD PCP - General 06/13/22 07/04/22 Lionel Gould MD [address] [place] [address] PCP - General 07/05/22 Daisy Gonzalez MD [address] [facility] [address] [place] [phone] Neurology 03/24/24 documented as of this encounter
--- OUTSIDE RECORDS SUMMARY | 2025-05-31 21:31 | XMS_ITS | Encounter Summary ---
Author Organization [facility] Health Address [address] [facility] [place] [address] Care Team Providers Care Pipe Inspector Name Role Phone Krissy Booth MD Primary Care Provider Juan Antonio Wyman [facility] Primary Care Provide r Smiley Davis [facility] Primary Care Provider Lizz Chairez MD Primary Care Provider [phone] Lionel Gould MD Primary Care Provider Lizz Chairez MD Primary Care Provider [phone] Lionel Gould MD Primary Care Provider Daisy Gonzalez MD Unavailable Reason for Visit * Reason Onset Date Comments MEDICATION REFILL 01/12/2018 Encounter Details Date Type Department Care Team (Late st Contact Info) Description 01/12/2018 Refill [facility] Internal Medicine [address] [facility] [address] [place] [address] Krissy Booth MD [address] [facility] [address] [place] [address] MEDICATION REFILL Social History Tobacco Use Types Packs/Day Years Used Date Smoking Tobacco: Former Cigarettes Q uit: 09/01/2012 Smokeless Tobacco: Never Alcohol Use Standard Drinks/Week Comments No 0 (1 standard drink = 0.6 oz pur e alcohol) Sex and Gender Information Value Date Recorded Sex Assigned at Male 01/03/2022 11:56 AM CDT Legal Sex Male 5:18 PM PARKING SUPERVISOR Gender Identity Male 01/03/2022 11:56 AM CDT Sexual Orientation Straight 01/03/2022 11 :56 AM CDT documented as of this encounter Plan of Treatment Upcoming Encounters Date Type Department Care Team (Late st Contact Info) Description 07/05/2025 9:30 AM PARKING SUPERVISOR Appointment [facility] NUCLEAR MEDICINE [address] [place] [phone] Lionel Gould MD [address] [place] [phone] 07/05/2025 10:30 AM PARKING SUPERVISOR Appointment [facility] NUCLEAR MEDICINE [address] [place] [phone] Lionel Gould MD [address] [place] [phone] 07/05/2025 1:00 PM PARKING SUPERVISOR Appointment [facility] ECHO [address] [place] [phone] Lionel Gould MD [address] [place] [phone] 07/29/2025 1:00 PM PARKING SUPERVISOR Office Visit [facility] - Internal Med [address] [facility], [place] [address] Lionel Gould MD [facility]5 [place] [address] documented as of this encounter [...] on filedocumented in this encounter Care Teams Pipe Inspector Relationship Specialty Start Date End Date Krissy Booth MD PCP - General 08/06/16 01/16/20 Juan Antonio Wyman APRN-PATIENT CARE ASSISTANT PCP - General 01/17/20 08/07/21 Smiley Davis APRN-PATIENT CARE ASSISTANT PCP - General 08/08/21 10/10/21 Lizz Chairez MD PCP - General 10/11/21 06/11/22 Lionel Gould MD [address] [place] [address] PCP - General Internal Medicine 06/12/22 06/12/22 Lizz Chairez MD PCP - General 06/13/22 07/04/22 Lionel Gould MD [address] [place] [address] PCP - General 07/05/22 Daisy Gonzalez MD [address] [facility] [address] [place] [place] [phone] Neurology 03/24/24 documented as of this encounter
--- OUTSIDE RECORDS SUMMARY | 2025-05-31 21:31 | XMS_ITS | Encounter Summary ---
Author Organization [facility] Health Address [address] [facility] [place] [address] Care Team Providers Care Tie Puller Name Role Phone Lionel Gould MD Primary Care Provider [phone] Daisy Gonzalez MD Unavailable [phone] Reason for Visit * Reason Onset Date Comments MEDICATION REFILL 12/28/2023 Encounter Details Date Type Department Care Team (Late st Contact Info) Description 12/28/2023 Refill [facility] Med [address] [facility] [place] [address] Lionel Gould MD [address] [place] [address] MEDICATION REFILL Social History Tobacco [...] AM CDT Legal Sex Male 5:18 PM COMPARISON SHOPPER Gender Identity Male 01/03/2022 11:56 AM CDT [...] st Contact Info) Description 07/05/2025 9:30 AM COMPARISON SHOPPER Appointment [facility] NUCLEAR MEDICINE [address] [place] [phone] Lionel Gould MD [address] [place] [address] 07/05/2025 10:30 AM COMPARISON SHOPPER Appointment [facility] NUCLEAR MEDICINE [address] [place] [phone] Lionel Gould MD [address] [place] [address] 07/05/2025 1:00 PM COMPARISON SHOPPER Appointment [facility] ECHO [address] [place] [phone] Lionel Gould MD [address] [place] [address] 07/29/2025 1:00 PM COMPARISON SHOPPER Office Visit [facility] - Internal Med [address] [facility] [place] [phone] Lionel Gould MD [address] [place] [address] documented as of this encounter [...] No Christi Lopez Note: Pt enrolled in [employer] for BS monitoring. Pt will receive daily texts to cell phone at 10:30. Pt understands these are fasting BS readings. Patient opted out of [employer] program. documented as of this encounter Visit Diagnoses Diagnosis Type 2 diabetes mellitus without complication, without long-term current use of insulin (HCC) documented in this encounter Care Teams Tie Puller Relationship Specialty Start Date End Date Lionel Gould MD [address] [place] [address] PCP - General 07/05/22 Daisy Gonzalez MD [facility] [address] [place] [phone] Neurology 03/24/24 documented as of this encounter
--- OUTSIDE RECORDS SUMMARY | 2025-05-31 21:31 | XMS_ITS | Encounter Summary ---
Author Organization [facility] Health Address [address] [facility] [place] [address] Care Team Providers Care Deburring Machine Operator Name Role Phone Krissy Booth MD Primary Care Provider Juan Antonio Wyman [facility] Primary Care Provide r Smiley Davis [facility] Primary Care Provider Lizz Chairez MD Primary Care Provider [phone] Lionel Gould MD Primary Care Provider Lizz Chairez MD Primary Care Provider [phone] Lionel Gould MD Primary Care Provider [phone] Daisy Gonzalez MD Unavailable [phone] Reason for Visit * Reason Onset Date Comments MEDICATION REFILL 10/13/2018 Encounter Details Date Type Department Care Team (Late st Contact Info) Description 10/13/2018 Refill [facility] [address] [facility] [address] [place] [address] Krissy Booth MD [address] [facility] [address] [place] [address] MEDICATION REFILL Social History Tobacco Use Types Packs/Day Years Used Date Smoking Tobacco: Former Cigarettes Q uit: 09/01/2012 Smokeless Tobacco: Never Alcohol Use Standard Drinks/Week Comments No 0 (1 standard drink = 0.6 oz pur e alcohol) Sex and Gender Information Value Date Recorded Sex Assigned at Male 01/03/2022 11:56 AM CDT Legal Sex Male 5:18 PM BARTENDER MANAGER Gender Identity Male 01/03/2022 11:56 AM [...] Krissy Booth MD - 10/13/2018 3:50 PM BARTENDER MANAGER Patient switched previously to atorvastatin. ENDER MANAGER * Telephone Encounter - Denice Pederson - 10/13/2018 9:21 AM CST Pharmacy faxing in refill request for patient's crestor. Medication attached. Allergies reviewed. Med not listed in MAR, but is listed in JENNY notes. to clarify. JENNY:10-15-18 NOV: none at this time ENDER MANAGER documented in this encounter Plan of Treatment Upcoming Encounters Date Type Department Care Team (Late st Contact Info) Description 07/05/2025 9:30 AM BARTENDER MANAGER Appointment [facility] NUCLEAR MEDICINE [facility]1 [place] [address] Lionel Gould MD [address] [place] [phone] 07/05/2025 10:30 AM BARTENDER MANAGER Appointment [facility] NUCLEAR MEDICINE [address] [place] [phone] Lionel Gould MD [address] [place] [address] 07/05/2025 1:00 PM BARTENDER MANAGER Appointment [facility] ECHO [address] [place] [address] Lionel Gould MD [address] [place] [address] 07/29/2025 1:00 PM BARTENDER MANAGER Office Visit [facility] Physician Group - Internal Med [address] [facility] [place] [phone] Lionel Gould MD [facility] [place] [address] documented as of this encounter [...] on filedocumented in this encounter Care Teams Deburring Machine Operator Relationship Specialty Start Date End Date Krissy Booth MD PCP - General 08/06/16 01/16/20 Juan Antonio Wyman ELECTRICAL TESTS SUPERVISOR-BICYCLE TAXI DRIVER PCP - General 01/17/20 08/07/21 Ryan Smiley, ELECTRICAL TESTS SUPERVISOR-BICYCLE TAXI DRIVER PCP - General 08/08/21 10/10/21 Lizz Chairez MD PCP - General 10/11/21 06/11/22 Lionel Gould MD [address] [place] [address] PCP - General Internal Medicine 06/12/22 06/12/22 Lizz Chairez MD PCP - General 06/13/22 07/04/22 Lionel Gould MD [address] [place] [address] PCP - General 07/05/22 Daisy Gonzalez MD [facility] [phone] Neurology 03/24/24 documented as of this encounter
--- OUTSIDE RECORDS SUMMARY | 2025-05-31 21:31 | XMS_ITS | Encounter Summary ---
Author Organization [facility] Health Address [address] [facility] [place] [address] Care Team Providers Care Gastrointestinal Technician Name Role Phone Krissy Booth MD Primary Care Provider Juan Antonio Wyman APRN-[facility] Primary Care Provide r Smiley Davis [facility] Primary Care Provider Lizz Chairez MD Primary Care Provider [phone] Lionel Gould MD Primary Care Provider [phone] Lizz Chairez MD Primary Care Provider [phone] Lionel Gould MD Primary Care Provider Daisy Gonzalez MD Unavailable [phone] Reason for Visit * Reason Onset Date Comments General 05/01/2018 Encounter Details Date Type Department Care Team (Late st Contact Info) Description 05/01/2018 Telephone [facility] Internal Medicine [address] [facility] [address] [place] [address] Krissy Booth MD [address] [facility] [address] [place] [address] General Social History Tobacco Use Types Packs/Day Years Used Date Smoking Tobacco: Former Cigarettes Q uit: 09/01/2012 Smokeless Tobacco: Never Alcohol Use Standard Drinks/Week Comments No 0 (1 standard drink = 0.6 oz pur e alcohol) Sex and Gender Information Value Date Recorded Sex Assigned at Male 01/03/2022 11:56 AM CDT Legal Sex Male 5:18 PM WIG DRESSER Gender Identity Male 01/03/2022 11:56 AM CDT [...] st Contact Info) Description 07/05/2025 9:30 AM WIG DRESSER Appointment [facility] NUCLEAR MEDICINE [address] [place] [phone] Lionel Gould MD [address] [place] [phone] 07/05/2025 10:30 AM WIG DRESSER Appointment [facility] NUCLEAR MEDICINE [address] [place] [phone] Lionel Gould MD [address] [place] [phone] 07/05/2025 1:00 PM WIG DRESSER Appointment [facility] ECHO [facility]1 [place] [address] Lionel Gould MD [facility]5 [place] [phone] 07/29/2025 1:00 PM WIG DRESSER Office Visit [facility] Physician Group - Internal Med [address] [facility] [place] [address] Lionel Gould MD [facility]5 [place] [address] documented as of this encounter [...] on filedocumented in this encounter Care Teams Gastrointestinal Technician Relationship Specialty Start Date End Date Krsisy Booth MD PCP - General 08/06/16 01/16/20 Juan Antonio Wyman APRN-SCHOOL PRINCIPAL PCP - General 01/17/20 08/07/21 Smiley Davis APRN-SCHOOL PRINCIPAL PCP - General 08/08/21 10/10/21 Lizz Chairez MD PCP - General 10/11/21 06/11/22 Lionel Gould MD [address] [place] [address] PCP - General Internal Medicine 06/12/22 06/12/22 Lizz Chairez MD PCP - General 06/13/22 07/04/22 Lionel Gould MD [address] [place] [address] PCP - General 07/05/22 Daisy Gonzalez MD [address] [facility] [address] [place] [phone] Neurology 03/24/24 documented as of this encounter
--- OUTSIDE RECORDS SUMMARY | 2025-05-31 21:31 | XMS_ITS | Clinical Summary ---
Author Organization [facility] Address [address] [place] [address] Care Team Providers Care Regulatory Specialist Name Role Phone Lionel Gould MD Primary Care Provider [phone] Daisy Gonzalez MD Unavailable [phone] Source Comments [facility],non-owned Affiliates and Associated Physician Practices is amultiple site organization consisting of ambulatory clinics and hospital sitesin [place], [place], [place] and [place]. This disclosure is being madepursuant to the Care Everywhere program and may not contain all information available regarding this patient. Last updated 18.[facility] Allergies Active Allergy Reactions Criticality Noted Date [...] 24 Active fish oil/omega-3 fatty acids (Promega;Cardi- Sunny Side 3) 1000 MG capsule Take 1 (one) [...] Refill [facility] - Internal Med [address] [place] [phone] Lionel Gould MD MEDICATION REFILL 04/05/2025 Refill [facility] - Internal Med [address] [place] [phone] Lionel Gould MD MEDICATION REFILL 03/15/2025 Results Follow-Up [facility] - Internal [address] [address] Lionel Gould MD 03/14/2025 9:40 AM CDT - 03/14/2025 11:59 PM CDT Hospital Encounter [facility] OP DRAW STATION [address] [place] [address] Discharge Disposition: Home or Self Care 03/14/2025 8:30 AM CDT Office Visit [facility] - Internal [address] [address] Lionel Gould MD Type 2 diabetes mellitus [...] Refill [facility] - Internal Med [address] [place] [phone] Lionel Gould MD Refill Request from Last 3 Months Immunizations Immunization Administration Dates Next Due [employer] primary Monoval ent 12+ yr 0.3ml 07/16/2024,05/24/2023 [...] AM CDT Legal Sex Male 5:18 PM SWABBER Gender Identity Male 01/03/2022 11:56 AM CDT Sexual Orientation Straight 01/03/2022 11 :56 AM CDT Last Filed Vital Signs Vital Sign Reading Time Taken Comments Blood Pressure 121/84 03/14/2025 8:23 AM CDT Pulse 70 03/14/2025 8:23 AM CDT Temperature 36.5 C (97.7 F) 03/14/2025 8:23 AM CDT Respiratory Rate 16 09/21/2024 10:38 AM SWABBER Oxygen Saturation 97% 03/14/2025 8:23 AM CDT Inhaled Oxygen Concentration - - Weight 104.3 kg (230 lb) 03/14/2025 8:23 AM CDT Height 180.3 cm (5' 11) 03/14/2025 8:23 AM CDT Body Mass Index 32.08 03/14/2025 8:23 AM CDT Plan of Treatment Upcoming Encounters Date Type Department Care Team (Late st Contact Info) Description 07/05/2025 9:30 AM SWABBER Appointment [facility] NUCLEAR MEDICINE [facility] [place] [address] Lionel Gould MD [facility] [place] [phone] 07/05/2025 10:30 AM SWABBER Appointment [facility] NUCLEAR MEDICINE [address] [place] [phone] Lionel Gould MD [facility] [place] [phone] 07/05/2025 1:00 PM SWABBER Appointment [facility] ECHO [address] [place] [address] Lionel Gould MD [facility] [place] [phone] 07/29/2025 1:00 PM SWABBER Office Visit [facility] - Internal Med [address] [facility] [place] [address] Lionel Gould MD [address] [place] [phone] Health Maintenance Due Date Last Done Comments [...] No Christi Lopez Note: Pt enrolled in [employer] for BS monitoring. Pt will receive daily texts to cell phone at 10:30. Pt understands these are fasting BS readings. Patient opted out of [employer] program. Medical Devices Implanted Type Area Corn Press Operator Device Identifier Shelf Expiration Date Model / Serial / Lot Screw 3.5mm 32mm Shldr Adis Ti Implanted:Qty: 1 on 10/16/2020 by Chaitanya Figueroa MD at [facility] Right: Shoulder [employer] [id number] / / Description:implant from Art hrex vendor tray Screw 3.5mm 28mm Shldr Adis Ti Implanted:Qty: 1 on 10/16/2020 by Chaitanya Figueroa MD at [facility] Right: Shoulder [employer] [id number] / / Description:implant from Art [employer]rex vendor tray Screw 3.5mm 26mm Shldr Adis Ti Implanted:Qty: 1 on 10/16/2020 by Chaitanya Figueroa MD at [facility] Right: Shoulder [employer] [id number] / / Description:implant from Art [employer]rex vendor tray Screw 4mm 40mm Lck Shldr Canc Ti Implanted:Qty: 1 on 10/16/2020 by Chaitanya Figueroa MD at [facility] Right: Shoulder [employer] [id number] / / Description:implant from Art hrex vendor tray Screw 4mm 44mm Lck Shldr Canc Ti Implanted:Qty: 1 on 10/16/2020 by Chaitanya Figueroa MD at [facility] Right: Shoulder [employer] [id number] / / Description:implant from Art hrex vendor tray Screw 4mm 34mm Lopro Lck Shldr Canc Implanted:Qty: 1 on 10/16/2020 by Chaitanya Figueroa MD at [facility] Right: Shoulder [employer] [id number] / / Description:implant from Art hrex vendor tray Screw 4mm 42mm Lck Shldr Canc Ti Implanted:Qty: 1 on 10/16/2020 by Chaitanya Figueroa MD at [facility] Right: Shoulder [employer] [id number] / / Description:implant from Art hrex vendor tray Screw 4mm 38mm Lopro Lck Shldr Canc Implanted:Qty: 1 on 10/16/2020 by Chaitanya Figueroa MD at [facility] Right: Shoulder [employer] [id number] / / Description:implant from Art hrex vendor tray 3-Hole Prox Humerus Plate Implanted:Qty: 1 on 10/16/2020 by Chaitanya Figueroa MD at [facility] Right: Shoulder [employer] [id number] / / Description:CC Procedures Procedure Name Priority Date/Time Associated Diagnosis Comments RENAL FUNCTION PANEL Routine 03/14/2025 9:52 AM CDT Type 2 diabetes mellitus without complication, without long-term current use of insulin ([facility]) HEMOGLOBIN A1C Routine 03/14/2025 9:52 AM CDT Type 2 diabetes mellitus without complication, without long-term current use of insulin (HCC) LIPID PROFILE Routine 03/14/2025 9:52 AM CDT Hypertriglyceridemia PROSTATE SPECIFIC ANTIGEN SCREEN Routine 03/14/2025 9:52 AM CDT Screening for prostate cancer MICROALB/CREAT RATIO URINE RANDOM PANEL Routine 09/13/2024 9:52 AM SWABBER Essential hypertension EYE EXAM Routine 08/07/2023 HIV-1 HIV-2 ANTIBODY + HIV P24 AG PANEL Routine 11/01/2020 11:24 AM SWABBER Healthcare maintenance HEPATITIS C AB W/RFLX TO HCV RNA QN PCR Routine 07/25/2020 12:54 PM SWABBER Healthcare maintenance ENDOSCOPY, COLON, DIAGNOSTIC Routine 02/24/2018 1:39 PM CDT from Last 3 Months or Most Recently Relevant to Health Maintenance Results * (ABNORMAL) HEMOGLOBIN A1C (03/14/2025 9:52 AM CDT) Hemoglobin A1c 6.5(H) <=5.6 % 03/14/2025 12:04 PM CDT [facility] Estimated Average Glucose 140 mg/dL 03/14/2025 12:04 PM [facility] Comment: HbA1c Interpretation: Normal : < 5.7% Pre-diabetes: 5.7-6.4% Diabetes: Equal to or greater than 6.5% Test results diagnostic of diabetes should be repeated for confirmation. Treatment target values recommended by ADA and other clinical organizations should be used to evaluate metabolic control in patients. Reference: [place] Diabetes Association, Standards of Care in Diabetes [...] MD LAB - CHEMISTRY ORDERABLES Final Result [facility] [address] [place] [address], [facility] [phone] * (ABNORMAL) RENAL FUNCTION PANEL (03/14/2025 9:52 AM CDT) BUN 14 7 - 26 mg/dL 03/14/2025 11:41 AM [facility] Creatinine 0.94 0.71 - 1.16 mg/dL 03/14/2025 11:41 AM [facility] Sodium 139 136 - 145 mmol/L 03/14/2025 11:41 AM [facility] Potassium 3.8 3.5 - 4.5 mmol/L 03/14/2025 11:41 AM [facility] Chloride 107 98 - 107 mmol/L 03/14/2025 11:41 AM [facility] CO2 25 22 - 29 mmol/L 03/14/2025 11:41 AM [facility] Glucose 104(H) 70 - 99 mg/dL 03/14/2025 11:41 AM [facility] Albumin 4.7 3.4 - 5.0 g/dL 03/14/2025 11:41 AM [facility] Calcium 9.9 8.4 - 10.2 mg/dL 03/14/2025 11:41 AM [facility] Phosphorus 4.2 2.8 - 5.1 mg/dL 03/14/2025 11:41 AM [facility] Anion Gap 7 6 - 16 03/14/2025 11:41 AM [facility] BUN/Creatinine Ratio 15 7 - 23 03/14/2025 11:41 AM [facility] Osmolality Calculated 289 275 - 295 mOsm/kg 03/14/2025 11:41 AM [facility] eGFR by CKD-EPI >90 >=90 mL/min/1.7 3 m2 03/14/2025 11:41 AM [facility] Comment:Estimated Glomerular Filtration Rate (eGFR) calculated using the CKD-EPI Creatinine Equation (2020), per the National Kidney Foundation and [place] Society of Nephrology recommendations. Blood BLOOD SPECIMEN / Unknown Lab Venipuncture / Unknown 03/14/2025 9:52 AM CDT 03/14/2025 10:47 AM CDT Lionel Gould MD LAB - CHEMISTRY ORDERABLES Final Result Performing Organization Address [facility]/ZIP Co de Phone Number [address] [address], [facility] [phone] * PROSTATE SPECIFIC ANTIGEN SCREEN (03/14/2025 9:52 AM CDT) PSA Total 0.3 <4.0 ng/mL 03/14/2025 12:14 PM CDT [facility] Blood BLOOD SPECIMEN / Unknown Lab Venipuncture / Unknown 03/14/2025 9:52 AM CDT 03/14/2025 10:09 AM CDT Narrative [facility] - 03/14/2025 12:14 PM CDT PSA values will vary depending on the testing procedure used. Results are not comparable across different test methods. [facility] uses the Prelert Alinity immunoassay test method. Lionel Gould MD LAB - CHEMISTRY ORDERABLES Final Result Performing Organization Address [facility] Co de Phone Number [address] [address], [facility] [phone] * (ABNORMAL) LIPID PROFILE (03/14/2025 9:52 AM CDT) Cholesterol Total 160 <200 mg/dL 03/14/2025 11:41 AM CDT [facility] HDL 32(L) >40 mg/dL 03/14/2025 11:41 AM CDT [facility] Comment: ATP III Classification of HDL Cholesterol: <40 mg/dL: Considered a major risk factor. >60 mg/dL: Considered a negative risk factor. LDL Calculated 68 <100 mg/dL 03/14/2025 11:41 AM [facility] Comment: ATP III Classification of LDL Cholesterol: <100 mg/dL: Optimal 100 - 129 mg/dL: Near Optimal/Above Optimal 130 - 159 mg/dL: Borderline High 160 - 189 mg/dL: High >190 mg/dL: Very High LDL is calculated using the Friedewald equation. Triglycerides 301(H) <150 mg/dL 03/14/2025 11:41 AM [facility] Comment: ATP III Classification of Triglycerides: <150 mg/dL: Normal 150 - 199 mg/dL: Borderline High 200 - 400 mg/dL: High >500 mg/dL: Very High Blood BLOOD SPECIMEN / Unknown Lab Venipuncture / Unknown 03/14/2025 9:52 AM CDT 03/14/2025 10:47 AM CDT Lionel Gould MD LAB - CHEMISTRY ORDERABLES Final Result Performing Organization Address City/[facility]/ZIP Co de Phone Number [facility] [address] [place] [address], [place] [phone] * MICROALB/CREAT RATIO URINE RANDOM PANEL (09/13/2024 9:52 AM SWABBER) Albumin Random Urine 15.1 Not Established ug/mL 09/13/2024 12:20 PM [facility] Creatinine Urine 175.64 Not Established mg/dL 09/13/2024 12:20 PM [facility] Urine Albumin/Creati nine Ratio 9 <30 mg/g 09/13/2024 12:20 PM [facility] Urine URINE SPECIMEN OBTAINED BY CLEAN CATCH PROCEDURE / Unknown Collection / Unknown 09/13/2024 9:52 AM SWABBER 09/13/2024 10:12 AM SWABBER Lionel Gould MD LAB - URINE CHEMISTRY ORDERABLES Final Result Performing Organization Address City/[facility]/ZIP Co de Phone Number [facility] [address] [place] [address], [place] [phone] * EYE EXAM (08/07/2023) Anatomical Region Laterality Modality Other us Historical Provider MD SCANNING ONLY Final Res ult * HIV-1 HIV-2 ANTIBODY + HIV P24 AG PANEL (11/01/2020 11:24 AM SWABBER) Pathologist [facility] HIV Screen 4th [...] purpose. For additional information please refer to http://Clixtr.Vpon/faq/GCV280 (This link is being provided for informational/ educational purposes only.) The performance of this assay has not been clinically validated in patients less than 2 years old. Test Performed at: [facility] [address] [place] [address] REBEKA PHELPS DO,MPH Blood BLOOD SPECIMEN / Unknown 11/01/2020 11:24 AM SWABBER 11/01/2020 11:25 AM SWABBER Juan Antonio Wyman [employer] FORMER[employer]/IT PROJECT MANAGER LAB - CHEMISTRY ORDER MARCY Final Result [facility] [address] [place] [address] * HEPATITIS C AB W/RFLX TO HCV RNA QN PCR (07/25/2020 12:54 PM SWABBER) Pathologist [facility] Hepatitis C Antibody NON-REACTI VE NON-REACT [facility] Signal to Cut-Off 0.03 <1.00 [facility] Comment: HCV antibody was non-reactive. There is no laboratory evidence of HCV infection. In most cases, no further action is required. However, if recent HCV exposure is suspected, a test for HCV RNA (test code 17200) is suggested. For additional information please refer to http://Clixtr.Vpon/faq/DJK76j2 (This link is being provided for informational/ educational purposes only.) Test Performed at: [employer] [address] [place] [address] REBEKA PHELPS DO,MPH Blood BLOOD SPECIMEN / Unknown 07/25/2020 12:54 PM SWABBER 07/25/2020 1:07 PM SWABBER Juan Antonio Kia Kathiejose ramondarien [employer]/IT PROJECT MANAGER LAB - CHEMISTRY ORDER MARCY Final Result [facility] [address] [place] [address] * ENDOSCOPY, COLON, DIAGNOSTIC (02/24/2018 1:39 PM [...] bowel preparation was evaluated using the BBPS ([place] Bowel Preparation Scale) with scores of: Right [...] non-cordon portions. Procedure Code(s): --- Professional --- 39948, Colonoscopy, flexible; with biopsy, single or multiple Diagnosis Code(s): --- Professional --- D12.3, Benign neoplasm of transverse colon (hepatic flexure or splenic flexure) D12.0, Benign neoplasm of cecum K64.4, Residual hemorrhoidal skin tags R19.7, Diarrhea, unspecified K57.30, Diverticulosis of large intestine without perforation or abscess without bleeding CPT copyright 2016 [place] [employer]. All rights reserved. The codes documented in this report are preliminary and upon candy feeder review may be revised to meet current compliance requirements. Bry Mane MD 02/24/2018 3:04:54 PM This report has been signed electronically. Note Initiated On: 02/24/2018 1:39 PM Number of Addenda: 0 [facility] [address] [facility] [place] [address] [facility] 02/24/2018 1:39 PM CDT Sage Mcnally MD GI PROCEDURE ORDERABLES Edit ed Result - Final [facility] from Last 3 Months or Most Recently Relevant to Health Maintenance Insurance [facility] Care Teams Regulatory Specialist Relationship Specialty Start Date End Date Lionel Gould MD [address] [place] [address] PCP - General 07/05/22 Daisy Gonzalez MD [address] [facility] [address] [place] [address] Neurology 03/24/24
--- OUTSIDE RECORDS SUMMARY | 2025-05-31 21:31 | XMS_ITS | Encounter Summary ---
Author Organization [facility] Health Address [address] [facility] [place] [address] Care Team Providers Care Engineer Automated Equipment Name Role Phone Krissy Booth MD Primary Care Provider Juan Antonio Wyman [facility] Primary Care Provide r Smiley Davis [facility] Primary Care Provider Lizz Chairez MD Primary Care Provider [phone] Lionel Gould MD Primary Care Provider Lizz Chairez MD Primary Care Provider [phone] Lionel Gould MD Primary Care Provider Daisy Gonzalez MD Unavailable [phone] Reason for Visit * Reason Onset Date Comments MEDICATION REFILL 02/09/2018 Encounter Details Date Type Department Care Team (Late st Contact Info) Description 02/09/2018 Refill [facility] General Internal Medicine [address] [facility] [address] [place] [address] Krissy Booth MD [address] [facility] [address] [place] [address] MEDICATION REFILL Social History Tobacco Use Types Packs/Day Years Used Date Smoking Tobacco: Former Cigarettes Q uit: 09/01/2012 Smokeless Tobacco: Never Alcohol Use Standard Drinks/Week Comments No 0 (1 standard drink = 0.6 oz pur e alcohol) Sex and Gender Information Value Date Recorded Sex Assigned at Male 01/03/2022 11:56 AM CDT Legal Sex Male 5:18 PM FINAL INSPECTOR Gender Identity Male 01/03/2022 11:56 AM CDT [...] st Contact Info) Description 07/05/2025 9:30 AM FINAL INSPECTOR Appointment [facility] NUCLEAR MEDICINE [address] [place] [address] Lionel Gould MD [address] [place] [phone] 07/05/2025 10:30 AM FINAL INSPECTOR Appointment [facility] NUCLEAR MEDICINE [address] [place] [address] Lionel Gould MD [address] [place] [phone] 07/05/2025 1:00 PM FINAL INSPECTOR Appointment [facility] ECHO [address] [place] [address] Lionel Gould MD [address] [place] [phone] 07/29/2025 1:00 PM FINAL INSPECTOR [facility] [address] [facility] [place] [address] Lionel Gould MD [address] [place] [phone] documented as of this encounter Goals Goal Patient Goal Type Associated Problems Recent Progress Patient-Stated? Author HEMOGLOBIN A1C < 7.0 Result Component 6.5( 9:52 AM CDT) Christi Olmedo Note: Pt enrolled in [employer] for BS monitoring. Pt will receive daily texts to cell phone at 10:30. Pt understands these are fasting BS readings. Patient opted out of [employer] program. documented as of this encounter Visit Diagnoses Not on filedocumented in this encounter Care Teams Engineer Automated Equipment Relationship Specialty Start Date End Date Krissy Booth MD PCP - General 08/06/16 01/16/20 Juan Antonio Wyman APRN-[employer] PCP - General 01/17/20 08/07/21 Smiley Davis APRN-[facility] PCP - General 08/08/21 10/10/21 Lizz Chairez MD PCP - General 10/11/21 06/11/22 Lionel Gould MD [address] [place] [address] PCP - General Internal Medicine 06/12/22 06/12/22 Lizz Chairez MD PCP - General 06/13/22 07/04/22 Lionel Gould MD [address] [place] [address] PCP - General 07/05/22 Daisy Gonzalez MD [facility] [facility] [address] [address] Neurology 03/24/24 documented as of this encounter
[2025-05-31 21:34] LABS: Alanine Aminotransferase 39 U/L (6-50); Albumin Level 5.0 g/dL (3.5-5.1); Alkaline Phosphatase 80 U/L (38-126); Anion Gap 13 mmol/L (4-12); Aspartate Amino Transferase 53 U/L (17-59); Bilirubin,Total 1.4 mg/dL (0.2-1.3); Blood Urea Nitrogen 12 mg/dL (9-20); Calcium 9.8 mg/dL (8.4-10.2); Carbon Dioxide 27 mmol/L (22-30); Chloride 102 mmol/L (98-107); Estimated CRCL calculation 106 ml/min; Estimated Glomerular Filt Rate > 60; Glucose 167 mg/dL (65-110); Lipase 211 U/L (23-300); Osmolality Calculated 297 mOsm/kg (285-295); Potassium 4.6 mmol/L (3.4-5.0); Sodium 142 mmol/L (137-145); Total Protein 10.2 g/dL (6.3-8.2)
[2025-05-31 21:46] LABS: Troponin I < 0.012 ng/mL (0.000-0.034)
[2025-05-31 21:49] LABS: Add Urine Microscopic? NO; Appearance Urine Clear (Clear); Glucose Urine UA Negative (Negative); Leukocyte Esterase Ur Negative LEU/UL (Negative); Nitrate Urine Negative (Negative); Specific Grav Ur 1.015 (1.010-1.020)
[2025-05-31] MEDS: LACTATED RINGERS 500 ML 999 ML IV CONT (22:25)
[2025-06-01 00:20] VITALS: BP 130/88; PULSE 90; RESP 17; TEMP 36.8; O2SAT 98
== END 2025-06-01 00:20 | disposition home or self-care (01) ==
PROVIDERS: Emergency Provider Internal Medicine Critical Care Medicine
DX: K57.92 Diverticulitis of intestine, part unspecified, without perforation or abscess without bleeding (principal); K63.89 Other specified diseases of intestine; E78.5 Hyperlipidemia, unspecified; E11.9 Type 2 diabetes mellitus without complications; Z90.49 Acquired absence of other specified parts of digestive tract; Z87.891 Personal history of nicotine dependence
CPT/HCPCS: 36415; 74177; 80053; 81003; 83605; 83690; 84484; 85025; 96361; 96374; 96375; 99284; A9270; J0780; J1171; J7120; Q9967